=== PATIENT | male | born 1985 | race Caucasian/White ===

== ENCOUNTER 2017-08-11 20:23 | Inpatient (IN) | payer OTHER ==
[~2017-08-11] VITALS: Ht 180.3 cm; Wt 77.1 kg
--- NOTE | 2017-08-11 20:39 | ED GENERAL ADULT ---
See Addendum History of Present Illness General Chief Complaint: ETOH/Drug Related Complaint Stated Complaint: "ALCOHOL WITHDRAWL, DRY HEAVING" DEPRESSED PER PT Source: patient Exam Limitations: no limitations Vital Signs & Intake/Output Vital Signs & Intake/Output Vital Signs Date Time Temp Pulse Resp B/P B/P Pulse O2 O2 Flow FiO2 Mean Ox Delivery Rate 08/12 0039 98.4 88 18 109/66 08/12 0039 98.4 88 18 109/66 99 Room Air 08/12 0011 91 18 94/54 96 Room Air 08/11 2345 98.7 82 18 91/55 08/11 2343 98.7 82 18 91/55 99 Room Air 08/11 2232 98.9 63 20 97/64 08/12 2231 98.6 63 22 97/64 99 Room Air 08/11 205 Room Air 08/11 204 97.5 89 18 126/75 08/11 203 97.5 89 18 126/75 100 Room Air ED Intake and Output 08/12 0000 08/11 1200 Intake Total 1000 Output Total Balance 1000 Intake, IV 1000 Patient 170 lb Weight Weight Reported by Patient Measurement Method Allergies Coded Allergies: No Known Allergies (08/11/17) Reconcile Medications No Known Home Medications Triage Note: PT FROM HOME C/O ETOH DETOX. PT STATES HE IS AN ALCOHOLIC AND WOULD LIKE DETOX. PT WAS SOBER FOR 90 DAYS PRIOR TO 4 MONTHS AGO WHEN PT RELAPSED AND HAS BEEN DRINKING 2 PINTS OF WHISKEY PER DAY FOR THE PAST 4 MONTHS. PT STATES LAST DRINK WAS AT 2300 08/10/17 THROUGHOUT THAT DAY PTS INTAKE WAS 1 PINT OF WHISKEY. PT HAS HAD 1 ALCOHOL SEIZURE WITHDRAWL 1X MONTH AGO. PTS VSS, PT DRY HEAVING IN TRIAGE. PT DENIES -HI BUT STATES "IM DEPRESSED AND HAVE THOUGHT ABOUT HURTING MYSELF BEFORE" PT DENIES PLAN AT THIS TIME. PT UNDERSTAND THE WANDING AND CHANGING PROCEDURE. SECUTIRY CALLED FOR WANDING. Triage Nurses Notes Reviewed? yes Onset: Gradual Duration: worse persistent since (4 months) Timing: recent history Injury Environment: home Severity: moderate Severity Numbers: 8 No Modifying Factors: none HPI: Patient is a 32-year-old male with history of alcohol abuse presenting to the emergency department with chief complaint of wanting alcohol detox. Patient has been drinking about a pain or 2 of whiskey daily for the past 4 months. Unsure withdrawal seizure history but reports that about one month ago he had an episode where he blacked out and people told him he was shaking. Patient reports that when he does not drink he feels anxious and shaky and has nausea and vomiting. Patient denying any abdominal pain. No chest pain or palpitations. Patient has not been able to keep anything down today. Last alcohol was yesterday early evening. Patient also reports that he uses cocaine intermittently. Positive tobacco use daily. (Dea Rocha) Past History Travel History Traveled to [place] past 21 day No Medical History Any Pertinent Medical History? see below for history Neurological: NONE EENT: NONE Cardiovascular: NONE Respiratory: NONE Gastrointestinal: NONE Hepatic: NONE Renal: NONE Musculoskeletal: NONE Psychiatric: NONE Endocrine: NONE Surgical History Surgical History: non-contributory Psychosocial History What is your primary language Ivorian Tobacco Use: Current Daily Use Daily Tobacco Use Amount/Type: => 5 Cigarettes daily ETOH Use: alcoholic Family History Hx Contributory? No (Dea Rocha) Review of Systems Review of Systems Constitutional: Reports: no symptoms. Comments Review of systems: See HPI, All other systems negative. Constitutional, no chills fever or weight loss HEENT: No visual changes no sore throat no congestion Cardiovascular: No chest pain ,palpitation , orthopnea or ankle swelling Skin, no jaundice no rashes Respiratory: No dyspnea cough sputum or hemoptysis GI: Positive nausea and vomiting : No dysuria No hematuria Muscle skeletal: no back pain, no neck pain, Neurologic: No numbness no confusion Psych: Positive stress and anxiety, reports depression Heme/endocrine: No bruising no bleeding no polyuria or polydipsia Immunology: No splenectomy or history of AIDS (Dea Rocha) Physical Exam Physical Exam General Appearance: well developed/nourished, no apparent distress, alert, awake Comments: Well-developed well-nourished person in no acute distress HEENT: Pupils equally round and reactive to light and accommodation. Nose is atraumatic. Neck: Normal inspection Back: Nontender Cardiovascular: Regular rate and rhythms no murmurs rubs or gallops Respiratory: No respiratory distress.breath sounds clear to auscultation bilaterally Abdomen: Soft, nontender nondistended, no appreciable organomegaly. Normal bowel sounds. No ascites, no rebound or guarding. Extremity: No edema Neuro: Alert oriented x3 Skin: No appreciable rash on exposed skin, skin is warm and dry. Psych: APPEARS SLIGHTLY ANXIOUS, memory and judgment is normal. Core Measures ACS in differential dx? No CVA/TIA Diagnosis: No Sepsis Present: No Sepsis Focused Exam Completed? No (Dea Rocha) Progress Differential Diagnoses I considered the following diagnoses in my evaluation of the patient: Alcohol withdrawal, alcohol intoxication, polysubstance abuse, dehydration, electrolyte abnormalities Plan of Care: Orders Procedure Date/time Status Pathway - chart 08/11 2326 Active Continuous Observation Monitor 08/11 2040 Active ED CRISIS PSYCH CONSULT 08/11 2040 Active CIWA 08/11 2037 Active URINE DRUG SCREEN FOR ER ONLY 08/11 2037 Complete MAGNESIUM 08/11 2037 Complete LIPASE 08/11 2037 Complete ETHANOL 08/11 2037 Complete COMPREHENSIVE METABOLIC PANEL 08/11 2037 Complete CBC WITHOUT DIFFERENTIAL 08/11 2037 Complete Current Medications Sig/Yulisa Start time Last Medication Dose Stop Time Status Admin Lorazepam 0.5 MG ONCE 08/16 0000 UNVr (Ativan) 08/16 0001 Lorazepam 0.5 MG Q6 08/15 0600 UNVr (Ativan) 08/16 0000 Lorazepam 0.5 MG ONCE ONE 08/14 1800 UNVr (Ativan) 08/14 1801 Lorazepam 1 MG Q6H 08/14 0000 UNVr (Ativan) 08/14 1201 Lorazepam 1.5 MG Q12H 08/13 0600 UNVr (Ativan) 08/13 1801 Lorazepam 1 MG Q12H 08/13 0000 UNVr (Ativan) 08/13 1201 Lorazepam 2 MG ONCE ONE 08/12 1800 UNVr (Ativan) 08/12 1801 Cyanocobalamin/ 1 BAG DAILY 08/12 1000 CAN Thiamine/Pyridoxine 08/14 1759 (Vitamin in I.V.) Dextrose/Water 1,000 ML (D5W 1000) Cyanocobalamin/ 1 BAG ONCE ONE 08/12 0030 AC Thiamine/Pyridoxine 08/12 0829 (Vitamin in I.V.) Dextrose/Water 1,000 ML (D5W 1000) Lorazepam 1.5 MG Q6H 08/12 0000 UNVr (Ativan) 08/12 1201 Lorazepam 2 MG Q6 08/11 2359 UNVr (Ativan) Laboratory Tests 08/11/17 2300: Urine Opiates Screen > 4000.00 H, Methadone Screen 189, Barbiturate Screen 60, Ur Phencyclidine Scrn < 6.00, Amphetamines Screen 179, U Benzodiazepines Scrn 143, Urine Cocaine Screen > 1000 H, Urine Cannabis Screen 61.10 H 08/11/172052: Anion Gap 9, Estimated GFR > 60, BUN/Creatinine Ratio 21.4, Glucose 101 H, Calcium 9.8, Magnesium 1.6, Total Bilirubin 0.7, AST 23, ALT 23, Alkaline Phosphatase 53, Total Protein 7.3, Albumin 4.2, Globulin 3.1, Albumin/Globulin Ratio 1.4, Lipase 75, CBC w Diff NO MAN DIFF REQ, RBC 4.62 L, MCV 87.2, MCH 29.9, MCHC 34.3, RDW 13.3, MPV 7.9, Gran % 57.6, Lymphocytes % 32.8, Monocytes % 6.3, Eosinophils % 3.0, Basophils % 0.3, Absolute Granulocytes 3.8, Absolute Lymphocytes 2.2, Absolute Monocytes 0.4, Absolute Eosinophils 0.2, Absolute Basophils 0, Serum Alcohol < 10.0 Initial ED EKG: none Hand-Off Endorsed To: Howard Winn DO Endorsed Time: 0100 Pending: consult, other (Dea Rocha) Departure Departure Disposition: STILL A PATIENT Condition: Stable Clinical Impression Primary Impression: Alcohol withdrawal Qualifiers: Complication of substance-induced condition: uncomplicated Qualified Code: F10.230 - Alcohol dependence with withdrawal, uncomplicated Referrals: Patient Has No Primary Care Dr (PCP/Family) Departure Forms: Customer Survey General Discharge Information Prescriptions: Current Visit Scripts No Known Home Medications (Dea Rocha) Departure Comments 08/12/17 12:46 AM Patient was signed out to me by Dea Carolina. He is pending case management approval for alcohol detox. He has his CIWA score of 17 and a history of alcohol withdrawal seizures. The patient will be signed out to Dr. Frank at 7 AM. (Howard Winn DO) Critical Care Note Critical Care Note Critical Care Time: non-applicable (Dea Rocha)
[2017-08-11 20:42] VITALS: BP 126/75
[2017-08-11 21:03] LABS: ABSOLUTE BASOPHIL COUNT 0 /CUMM (0.0-0.2); ABSOLUTE EOSINOPHIL COUNT 0.2 /CUMM (0.0-0.7); ABSOLUTE GRANULOCYTE CT 3.8 /CUMM (1.4-6.5); ABSOLUTE LYMPH COUNT 2.2 /CUMM (1.2-3.4); ABSOLUTE MONOCYTE COUNT 0.4 /CUMM (0.10-0.60); BASOPHIL % 0.3 % (0.0-2.0); GRANULOCYTE % 57.6 % (42.2-75.2); HEMATOCRIT 40.3 % (42-52); MEAN CORPUSCULAR HGB 29.9 PG (27.0-31.0); MEAN CORPUSCULAR HGB CONC 34.3 G/DL (33.0-37.0); MEAN CORPUSCULAR VOLUME 87.2 FL (80.0-94.0); MEAN PLATELET VOLUME 7.9 FL (7.4-10.4); PLATELET COUNT 267 /CUMM (130-400); RBC DISTRIBUTION WIDTH 13.3 % (11.5-14.5); RED BLOOD CELL CT 4.62 /CUMM (4.70-6.10); WHITE BLOOD CELL COUNT 6.7 /CUMM (4.8-10.8)
[2017-08-11 22:32] VITALS: BP 97/64
[2017-08-11 23:45] VITALS: BP 91/55
[2017-08-12] VITALS (9 sets, daily range): BP systolic 105–130; BP diastolic 58–74
--- NOTE | 2017-08-12 03:46 | History & Physical ---
MatthewMaldonado 08/12/17 0341: General Information and HPI MD Statement: I have seen and personally examined FRANCISCA LIU and documented this H&P. The patient is a 32 year old M who presented with a patient stated chief complaint of dry heaves and vomiting with headache due to alcohol withdrawal came for alcohol detox.[]. 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 Patient reported that he has been drinking alcohol 1-2 pints every day for last 4 months. Patient's last drink was yesterday after that he decided to quit alcohol and came to ED with alcohol withdrawal symptoms. Patient also reported that last time he got alcohol detox treatment at [facility] and he remained sober for 4 weeks. After the patient again started to drink alcohol. Patient reported that he vomited once but he didn't tell me if he noticed any blood in it. During the interview patient became agitated as he was thinking that we were disturbing his sleep and he had to answer the questions again and again. We explained him that we are going to admit him that we have to interview him again. Patient also reported the use of iv cocaine and heroine every day and last time he used yesterday. Patient also reported that he is positive for hep C with negative viral load in 2002 and never got the treatment. He also reported having seizures due to alcohol withdrawal but never been admitted to the hospital. Patient also reported having history of cocaine- induced arrhythmia in 2011. Patient denied any chest pain, short of breath, chills, fever, lumps or bumps in the neck, abdominal pain, diarrhea, depression, loss of appetite, loss of consciousness, palpitation and dysuria. ED course: Vitals:Temp 97.5, pulse 89, respiratory rate 18, blood pressure 126/75, oxygen saturation 99% on room air Labs: WBC count 6.7, hemoglobin 13.8, hematocrit 40.3, platelet count 267, sodium 135, potassium 3.9, BUN 15, creatinine 0.7, anion gap 9, BUN/creatinine ratio 21.4, glucose 101, calcium 9.8, magnesium 1.6, AST 23, ALT 23, alkaline phosphatase 53, total protein 7.3, albumin 4.2, globulin 3.1, albumin/globulin ratio 1.4, lipase 75 His CIWA score in ED was 17 and he got multiple doses of lorazepam. Patient also received thiamine, vitamin B12 and folic acid. His U tox was positive for cocaine, marijuana, and methadone in ED. Allergies/Medications Allergies: Coded Allergies: No Known Allergies (08/11/17) Home Med list No Known Home Medications Past History Travel History Traveled to [place] past 21 day No Medical History Neurological: NONE EENT: NONE Cardiovascular: NONE Respiratory: NONE Gastrointestinal: NONE Hepatic: NONE Renal: NONE Musculoskeletal: NONE Psychiatric: NONE Endocrine: NONE Isolation History: Standard Surgical History Surgical History: non-contributory Past Family/Social History Psychosocial History ETOH Use: alcoholic Review of Systems Review of Systems Constitutional: Reports: see HPI. EENTM: Reports: no symptoms. Cardiovascular: Reports: no symptoms. Respiratory: Reports: no symptoms. GI: Reports: nausea, vomiting. Genitourinary: Reports: no symptoms. Musculoskeletal: Reports: no symptoms. Skin: Reports: no symptoms. Neurological/Psychological: Reports: anxiety, headache. Hematologic/Endocrine: Reports: no symptoms. Exam & Diagnostic Data Last 24 Hrs of Vital Signs/I&O Vital Signs Date Time Temp Pulse Resp B/P B/P Pulse O2 O2 Flow FiO2 Mean Ox Delivery Rate 08/127 98.6 86 18 111/62 08/12 0225 98.6 86 18 111/62 99 Room Air 08/12 0110 98.6 86 18 105/58 08/12 0108 98.6 86 18 105/58 100 Room Air 08/12 0039 98.4 88 18 109/66 08/12 0039 98.4 88 18 109/66 99 Room Air 08/12 0011 91 18 94/54 96 Room Air 08/11 2344 98.7 82 18 91/55 08/11 2342 98.7 82 18 91/55 99 Room Air 08/12 2231 98.9 63 20 97/64 08/12 2231 98.6 63 22 97/64 99 Room Air 08/11 2054 Room Air 08/11 2041 97.5 89 18 126/75 08/12 2031 97.5 89 18 126/75 100 Room Air Intake & Output 08/12 0800 08/12 0000 08/11 1600 Intake Total 1000 Output Total Balance 1000 Intake, IV 1000 Patient 170 lb Weight Weight Reported by Patient Measurement Method Physical Exam General Appearance Oriented X3, Cooperative, No Acute Distress Skin No Rashes Skin Temp/Moisture Exam: Warm/Dry Sepsis Skin Exam (color): Normal for Ethnicity HEENT Atraumatic Neck Supple Cardiovascular Normal S1, Normal S2 Lungs Clear to Auscultation, Normal Air Movement Abdomen Normal Bowel Sounds, Soft Neurological Normal Speech, Strength at 5/5 X4 Ext, Normal Tone, Sensation Intact Extremities No Edema, Right hand mild swelling and redness Assessment/Plan Assessment: 32 YO M smoker (1 pack/d) with significant PMH of alcohol abuse, hepatitis c with negative viral load, 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 We will admit the patient on general medicine floor for alcohol detox. Alcohol detox: -We will follow the CIWA protocal and will give him IV lorazepam according to CIWA score. -By mouth lorazepam 2 mg every 8 hourly. -High dose IV thiamine with vitamin B12 and folic acid. -IV Protonix. -IV antiemetics when necessary. -IV hydration as needed -Seizure precautions -Aspiration precautions -Nothing by mouth for now. -We will check his magnesium and phosphorus level. History of cocaine and heroine use: -Patient has history of IV cocaine and he will use and also reported having cocaine-induced arrhythmias. -We will check troponin and EKG 2 more times. -We will monitor his vitals. -Right hand swelling and mild redness. We will follow clinically. DVT prophylaxis: Mechanical and Lovenox subcutaneous. CODE STATUS: Full code As Ranked By This Provider Problem List: 1. Alcohol withdrawal Qualifiers Complication of substance-induced condition: uncomplicated Qualified Code: F10.230 - Alcohol dependence with withdrawal, uncomplicated Core Measures/Misc (02/15) Acute Coronary Syndrome ACS Diagnosis: No Congestive Heart Failure Congestive Heart Failure Diagnosis No Cerebrovascular Accident CVA/TIA Diagnosis: No VTE (View Protocol) VTE Risk Factors Smoker No Mechanical VTE Prophylaxis d/t N/A MechProphylax Ordered No VTE Pharm Prophylaxis d/t NA PharmProphylax ordered Sepsis (View protocol) Sepsis Present: No Albalwai,Afaf 08/12/17 0408: Resident Review Statement Resident Statement: examined this patient, discussed with multicultural internship, agreed with multicultural internship, discussed with family, reviewed EMR data (avail), discussed with nursing , reviewed images Other Findings: is a 32 yo man with PMHx. of alcohol dependence, HC, and multiple admission for alcohol withdrawal at [facility] with withdrawal seizure presented to ED requesting detox. Admission to general medicine floor, [facility] protocol, ativan per [facility], scheduled ativan, banana bag followed by oral thiamine, multivitamin, oral folic acid, EKG , trops, will repeat CBC, BEP, Mg, Po4, LFT, social consult, psych consult. DVTppx: SC Lovenox Ursula Roth 08/12/17 0436: Attending MD Review Statement Attending Statement Attending MD Statement: examined this patient, discuss w/resident/PA/FOREST SCIENTIST, agreed w/resident/PA/FOREST SCIENTIST, reviewed EMR data (avail), reviewed images, amended to note Attending Assessment/Plan: CC: Requesting alcohol detox PMH: Alcoholism, hep C not treated: viral load negative, cocaine related arrhythmia Patient came to ER requesting alcohol detox. Patient had been sober in the past for 4 weeks, relapsed again 4 months ago, drinks 2 pints of whiskey every day. Patient had undergone several detox in [facility] and [facility], never hospitalized in ICU, did not have seizures in hospital. Approximately 5 months back bystander noticed him having loss of consciousness and shaking but he never was investigated for that episode. Patient admits depression, suicidal ideation But no plan. Last alcohol use yesterday evening. Patient uses IV cocaine and heroine use intermittently, last use yesterday. He complains of nausea, dry heaving and 1 episode of vomiting and feeling anxious. He denies any chest pain, palpitations, heartburn, abdominal pain, blood in vomitus, black colored stool, recent seizure-like episode or passing out. Vitals: Afebrile, pulse 89, RR 18, blood pressure 126/75 on arrival, saturating well on room air. On exam: A O 3, cooperative, no acute distress, neck supple, JVD normal, no lymphadenopathy, mucosa moist, no focal neurological deficit, no dependent edema , no obvious skin rashes or inflammation CVS: S1-S2, RRR. RS: Clear to auscultate bilaterally. Abdomen: Soft, NT, ND, bowel sounds present. Right forearm mildly swollen, red but nontender and not increased temperature Assessment and plan 32-year-old male with past medical history significant for alcoholism presented in ER requesting detox. He feels anxious, has nausea, dry heaving and one episode vomiting , nonbloody. CIWA scores ranging from 6-17. Exam unremarkable, labs show mild volume contraction with alkalosis. U tox positive for marijuana, cocaine, opiates, methadone. Patient endorses IV use of heroine and cocaine, last use yesterday. He had history of cocaine-induced arrhythmia in 2011, currently not on any medication for the same. ECG and telemetry monitoring in ER is normal. Currently patient denies any chest pain, palpitations. Right upper extremity mildly swollen and red needs to be followed up clinically. Patient had seizure-like activity 5 months back, observe by a bystander, currently not on any medication + Alcohol withdrawal + Polysubstance abuse (IVDU) + Hx Hep c, negative viral load without treatment diagnosed 2002. - Admit to general medicine - Continue scheduled Ativan PO 2 mg milligram every 6 hour - Continue when necessary Ativan according to CIWA protocol - High-dose thiamine - Continue gentle hydration - PO folic acid - Check magnesium and phosphorus, today and tomorrow, replace if low - Seizure precaution - Protonix 40 mg by mouth daily - When necessary Zofran - 2 more sets of troponin and ECG - DVT prophylaxis - Adequate pain control
--- NOTE | 2017-08-12 04:37 | Admission Certification ---
Admission Certification Certification Statement - As attending physician, I certify that at the time of - admission, based on clinical presentation, severity of - symptoms, need for further diagnostic testing and - therapeutic interventions, and risk of adverse outcomes - without in-hospital treatment, in my clinical assessment, - this patient requires an acute hospital stay for a minimum - of two nights or longer. I have also considered psychsocial - factors such as support system, advanced age, financial - issues, cognitive issues, and failed out-patient treatments, - past re-admission history, safety of patient, and lack of - compliance as applicable. Specific rationale supporting this admission is: Alcohol withdrawal
--- NOTE | 2017-08-12 12:25 | PN- Att Addend ---
Attending Addendum Attending Brief Note Assessment and plan 32-year-old male with past medical history significant for alcoholism presented in ER requesting detox. No new complaints. 1 Alcohol withdrawal 2 Polysubstance abuse (IVDU) 3 Hx Hep c, Negative viral load without treatment diagnosed 2002. - Admit to general medicine - Continue scheduled Ativan - Continue when necessary Ativan according to CIWA protocol - High-dose thiamine - PO folic acid - Check magnesium and phosphorus, today and tomorrow, replace if low - Seizure precaution - Protonix 40 mg by mouth daily - When necessary Zofran - DVT prophylaxis - Adequate pain control. Admission Lab Results I reviewed the following labs: Laboratory Tests 08/12 08/12 08/12 08/12 1204 1000 0800 0600 Chemistry Sodium (137 - 145 mmol/L) 137 Potassium (3.5 - 5.1 mmol/L) 4.6 Chloride (98 - 107 mmol/L) 103 Carbon Dioxide (22 - 30 mmol/L) 28 Anion Gap (5 - 16) 7 BUN (9 - 20 mg/dL) 14 Creatinine (0.7 - 1.2 mg/dL) 0.7 Estimated GFR (>60 ml/min) > 60 BUN/Creatinine Ratio (7 - 25 %) 20.0 Phosphorus (2.5 - 4.5 mg/dL) 3.7 Magnesium (1.6 - 2.3 mg/dL) 1.6 Total Bilirubin (0.2 - 1.3 mg/dL) 0.8 Direct Bilirubin (< 0.4 mg/dL) 0.6 H AST (17 - 59 U/L) 28 ALT (21 - 72 U/L) 23 Alkaline Phosphatase (< 127 U/L) 48 Troponin I (<0.11 ng/ml) Pending Cancelled Cancelled < 0.01 Total Protein (6.3 - 8.2 g/dL) 5.9 L Albumin (3.5 - 5.0 g/dL) 3.2 L 08/12 08/11 0441 2300 Chemistry Troponin I Cancelled Toxicology Urine Opiates Screen (>2000 NG/ML) > 4000.00 H Methadone Screen (>300 NG/ML) 189 Barbiturate Screen (>200 NG/ML) 60 Ur Phencyclidine Scrn (>25 NG/ML) < 6.00 Amphetamines Screen (>1000 NG/ML) 179 U Benzodiazepines Scrn (>200 NG/ML) 143 Urine Cocaine Screen (>300 NG/ML) > 1000 H Urine Cannabis Screen (>50 NG/ML) 61.10 H 08/11 2052 Chemistry Sodium (137 - 145 mmol/L) 135 L Potassium (3.5 - 5.1 mmol/L) 3.9 Chloride (98 - 107 mmol/L) 96 L Carbon Dioxide (22 - 30 mmol/L) 30 Anion Gap (5 - 16) 9 BUN (9 - 20 mg/dL) 15 Creatinine (0.7 - 1.2 mg/dL) 0.7 Estimated GFR (>60 ml/min) > 60 BUN/Creatinine Ratio (7 - 25 %) 21.4 Glucose (65 - 99 mg/dL) 101 H Calcium (8.4 - 10.2 mg/dL) 9.8 Phosphorus (2.5 - 4.5 mg/dL) 4.7 H Magnesium (1.6 - 2.3 mg/dL) 1.6 Total Bilirubin (0.2 - 1.3 mg/dL) 0.7 AST (17 - 59 U/L) 23 ALT (21 - 72 U/L) 23 Alkaline Phosphatase (< 127 U/L) 53 Troponin I (<0.11 ng/ml) < 0.01 Total Protein (6.3 - 8.2 g/dL) 7.3 Albumin (3.5 - 5.0 g/dL) 4.2 Globulin (1.9 - 4.2 gm/dL) 3.1 Albumin/Globulin Ratio (1.1 - 2.2 %) 1.4 Lipase (23 - 300 U/L) 75 Hematology CBC w Diff NO MAN DIFF REQ WBC (4.8 - 10.8 /CUMM) 6.7 RBC (4.70 - 6.10 /CUMM) 4.62 L Hgb (14.0 - 18.0 G/DL) 13.8 L Hct (42 - 52 %) 40.3 L MCV (80.0 - 94.0 FL) 87.2 MCH (27.0 - 31.0 PG) 29.9 MCHC (33.0 - 37.0 G/DL) 34.3 RDW (11.5 - 14.5 %) 13.3 Plt Count (130 - 400 /CUMM) 267 MPV (7.4 - 10.4 FL) 7.9 Gran % (42.2 - 75.2 %) 57.6 Lymphocytes % (20.5 - 51.1 %) 32.8 Monocytes % (1.7 - 9.3 %) 6.3 Eosinophils % (0 - 5 %) 3.0 Basophils % (0.0 - 2.0 %) 0.3 Absolute Granulocytes (1.4 - 6.5 /CUMM) 3.8 Absolute Lymphocytes (1.2 - 3.4 /CUMM) 2.2 Absolute Monocytes (0.10 - 0.60 /CUMM) 0.4 Absolute Eosinophils (0.0 - 0.7 /CUMM) 0.2 Absolute Basophils (0.0 - 0.2 /CUMM) 0 Toxicology Serum Alcohol (<10 MG/DL) < 10.0 Admission Meds I reviewed the following Meds: Current Medications Sig/Yulisa Start time Last Medication Dose Stop Time Status Admin Acetaminophen 650 MG Q6P PRN 08/12 0415 AC (Tylenol) Cyanocobalamin/ 1 BAG DAILY 08/12 1000 CAN Thiamine/Pyridoxine 08/14 1759 (Vitamin in I.V.) Dextrose/Water 1,000 ML (D5W 1000) Enoxaparin Sodium 40 MG DAILY 08/12 1000 AC 08/12 (Lovenox) 0917 Folic Acid 1 MG DAILY 08/12 1000 AC 08/12 (Folic Acid) 0917 Lorazepam 0.5 MG ONCE ONE 08/14 1800 CAN (Ativan) 08/14 1801 Lorazepam 1 MG Q6H 08/14 0000 CAN (Ativan) 08/14 1201 Lorazepam 1 MG Q12H 08/13 0000 CAN (Ativan) 08/13 1201 Lorazepam 2 MG Q6H 08/12 0400 AC 08/12 (Ativan) 0917 Lorazepam See Dose Q1P PRN 08/12 0400 AC (Ativan) Insts (1) Multivitamins 1 TAB DAILY 08/12 1000 AC 08/12 (Theragran Vitamins) 0917 Omeprazole 40 MG DAILY AC 08/12 0700 AC 08/12 (Prilosec) 0632 Thiamine HCl 100 MG DAILY 08/12 1000 AC 08/12 (Vitamin B1) 0917 Dose Instructions: (1)Lorazepam (Ativan): See Admin Criteria
[2017-08-13] VITALS: BP 119/62
[2017-08-13 01:32] VITALS: BP 124/62
[2017-08-13 06:28] VITALS: BP 106/59
--- NOTE | 2017-08-13 07:52 | PN- Housestaff ---
Em Bryan MD 08/13/17 0752: Subjective Follow-up For: ALCOHOL DETOX Complaints: MYALGIA Review of Systems Constitutional: Reports: weakness. Cardiovascular: Reports: no symptoms. Respiratory: Reports: no symptoms. Gastrointestinal: Reports: no symptoms. Genitourinary: Reports: no symptoms. Musculoskeletal: Reports: muscle pain. Objective Last 24 Hrs of Vital Signs/I&O Vital Signs Date Time Temp Pulse Resp B/P B/P Pulse O2 O2 Flow FiO2 Mean Ox Delivery Rate 08/13 1356 97.7 82 20 110/70 98 Room Air 08/13 1052 70 106/59 08/13 0628 98.3 70 18 106/59 97 08/13 0132 97.8 80 20 124/62 08/13 0000 97.7 62 20 119/62 08/12 2249 97.7 62 20 119/62 98 Room Air 08/12 1728 74 20 08/12 1717 98.7 74 18 116/72 99 Room Air 08/12 1619 97.7 82 18 114/60 97 Room Air 08/12 1417 97.9 76 19 119/55 97 Intake & Output 08/13 1600 08/13 0800 08/13 0000 Intake Total 612 993 3546 Output Total Balance 080 665 7932 Intake, IV 0 10 450 Intake, Oral 500 400 600 Number 1 Bowel Movements Patient 170 lb Weight Weight Reported by Patient Measurement Method Physical Exam General Appearance: Alert, Oriented X3, Cooperative, Mild Distress Skin: No Rashes, No Breakdown Cardiovascular: Regular Rate, Normal S1, Normal S2 Lungs: Clear to Auscultation Abdomen: Soft, No Tenderness, No Hepatospenomegaly Neurological: Strength at 5/5 X4 Ext, Normal Tone, Sensation Intact Extremities: No Edema Assessment/Plan Assessment: 32 YO M smoker (1 pack/d) with significant PMH of alcohol abuse, hepatitis c with negative viral load, 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 We will admit the patient on general medicine floor for alcohol detox. Alcohol detox/opioid withdrawal: -Patient is on IV lorazepam when necessary and by mouth lorazepam 2 mg every 6. His ciwa score is 16-14. We will follow the CIWA protocal and will give him IV lorazepam according to CIWA score. -Patient was seen by psychiatry who suggested to add Bentyl, Atarax for anxiety, baclofen, clonidine, ibuprofen to help with this opioid withdrawal. -High dose IV thiamine with vitamin B12 and folic acid. -Omeprazole 40 mg daily. Zofran IV as needed. -Seizure precautions -Aspiration precautions -Regular diet. -Replace electrolytes as needed. -Patient is homeless and we will involve social service agency director to help with this placement. DVT prophylaxis: Mechanical and Lovenox subcutaneous. CODE STATUS: Full code Problem List: 1. Alcohol withdrawal 2. Acute opioid withdrawal Pain Ratin Pain Location: none Pain Goal: Remain pain free Pain Plan: tylenol,ativan, motrin Tomorrow's Labs & Rationales: Mauro Shaffer MD 08/13/172057: Attending MD Review Statement Attending Statement Attending MD Statement: examined this patient, discuss w/resident/PA/RESTAURANT MANAGING PARTNER, agreed w/resident/PA/RESTAURANT MANAGING PARTNER, reviewed EMR data (avail), discussed with nursing, discussed with case mgmt, amended to note Attending Assessment/Plan: The patient was seen and discussed with house staff, nursing, and case management. Appreciate psychiatry input. The patient presents with EtOH and polysubstance abuse, including opioids and cocaine. Agree with addition of opioid withdrawal regimen (clonidine, bentyl, ibuprofen, etc.). Continue Ativan alcohol detox regimen.
--- NOTE | 2017-08-13 09:16 | Cons- Psychiatry ---
Psychiatric Consult Date of Consult: 08/13/17 Reason for Consult: etoh/depression Allergies: Coded Allergies: No Known Allergies (08/11/17) Past History Past Medical History Neurological: SEIZURE WITHDRAWL DUE TO ALCOHOL EENT: NONE Cardiovascular: NONE Respiratory: NONE Gastrointestinal: NONE Hepatic: NONE Renal: NONE Musculoskeletal: NONE Psychiatric: NONE Endocrine: NONE Blood Disorders: HEP C Past Surgical History Surgical History: non-contributory Assessment/Plan Impression: Pt seen and examined bedside, chart and labs reviewed. 32 y/o M PMH etoh use d/o opiate use disorder Hep C untreated self presents for etoh detox. Relapsed 4 months ago after 3 months sober. 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 Hx WD seizure 1 month ago. Also reported depressive sx while in ED, no plan. Recent detox at [facility]. Cocaine induced arrthymia in 2011. Refuses exam but reports doing 20 bags of heroin daily and "crawling out of my skin." Amenable to interview after sx resolve. Requesting ativan. Ed Course Vitals:Temp 97.5, pulse 89, respiratory rate 18, blood pressure 126/75, oxygen saturation 99% on room air His U tox was positive for cocaine, marijuana, and opiates in ED. Vital Signs Date Time Temp Pulse Resp B/P B/P Pulse O2 O2 Flow FiO2 Mean Ox Delivery Rate 08/13 0628 98.3 70 18 106/59 97 08/13 0132 97.8 80 20 124/62 Laboratory Tests 08/13 08/12 08/12 08/12 08/12 0715 1204 1000 0800 0600 Chemistry Sodium (137 - 145 mmol/L) 139 137 Potassium (3.5 - 5.1 mmol/L) 4.2 4.6 Chloride (98 - 107 mmol/L) 103 103 Carbon Dioxide (22 - 30 mmol/L) 25 28 Anion Gap (5 - 16) 11 7 BUN (9 - 20 mg/dL) 10 14 Creatinine (0.7 - 1.2 mg/dL) 0.7 0.7 Estimated GFR (>60 ml/min) > 60 > 60 BUN/Creatinine Ratio (7 - 25 %) 14.3 20.0 Phosphorus (2.5 - 4.5 mg/dL) 2.8 3.7 Magnesium (1.6 - 2.3 mg/dL) 1.6 1.6 Total Bilirubin (0.2 - 1.3 mg/dL) 0.8 Direct Bilirubin (< 0.4 mg/dL) 0.6 H AST (17 - 59 U/L) 28 ALT (21 - 72 U/L) 23 Alkaline Phosphatase (< 127 U/L) 48 Troponin I (<0.11 ng/ml) < 0.01 Cancelled Cancelled < 0.01 Total Protein (6.3 - 8.2 g/dL) 5.9 L Albumin (3.5 - 5.0 g/dL) 3.2 L 08/12 08/11 0441 2300 Chemistry Troponin I Cancelled Toxicology Urine Opiates Screen (>2000 NG/ML) > 4000.00 H Methadone Screen (>300 NG/ML) 189 Barbiturate Screen (>200 NG/ML) 60 Ur Phencyclidine Scrn (>25 NG/ML) < 6.00 Amphetamines Screen (>1000 NG/ML) 179 U Benzodiazepines Scrn (>200 NG/ML) 143 Urine Cocaine Screen (>300 NG/ML) > 1000 H Urine Cannabis Screen (>50 NG/ML) 61.10 H 08/113 Chemistry Sodium (137 - 145 mmol/L) 135 L Potassium (3.5 - 5.1 mmol/L) 3.9 Chloride (98 - 107 mmol/L) 96 L Carbon Dioxide (22 - 30 mmol/L) 30 Anion Gap (5 - 16) 9 BUN (9 - 20 mg/dL) 15 Creatinine (0.7 - 1.2 mg/dL) 0.7 Estimated GFR (>60 ml/min) > 60 BUN/Creatinine Ratio (7 - 25 %) 21.4 Glucose (65 - 99 mg/dL) 101 H Calcium (8.4 - 10.2 mg/dL) 9.8 Phosphorus (2.5 - 4.5 mg/dL) 4.7 H Magnesium (1.6 - 2.3 mg/dL) 1.6 Total Bilirubin (0.2 - 1.3 mg/dL) 0.7 AST (17 - 59 U/L) 23 ALT (21 - 72 U/L) 23 Alkaline Phosphatase (< 127 U/L) 53 Troponin I (<0.11 ng/ml) < 0.01 Total Protein (6.3 - 8.2 g/dL) 7.3 Albumin (3.5 - 5.0 g/dL) 4.2 Globulin (1.9 - 4.2 gm/dL) 3.1 Albumin/Globulin Ratio (1.1 - 2.2 %) 1.4 Lipase (23 - 300 U/L) 75 Hematology CBC w Diff NO MAN DIFF REQ WBC (4.8 - 10.8 /CUMM) 6.7 RBC (4.70 - 6.10 /CUMM) 4.62 L Hgb (14.0 - 18.0 G/DL) 13.8 L Hct (42 - 52 %) 40.3 L MCV (80.0 - 94.0 FL) 87.2 MCH (27.0 - 31.0 PG) 29.9 MCHC (33.0 - 37.0 G/DL) 34.3 RDW (11.5 - 14.5 %) 13.3 Plt Count (130 - 400 /CUMM) 267 MPV (7.4 - 10.4 FL) 7.9 Gran % (42.2 - 75.2 %) 57.6 Lymphocytes % (20.5 - 51.1 %) 32.8 Monocytes % (1.7 - 9.3 %) 6.3 Eosinophils % (0 - 5 %) 3.0 Basophils % (0.0 - 2.0 %) 0.3 Absolute Granulocytes (1.4 - 6.5 /CUMM) 3.8 Absolute Lymphocytes (1.2 - 3.4 /CUMM) 2.2 Absolute Monocytes (0.10 - 0.60 /CUMM) 0.4 Absolute Eosinophils (0.0 - 0.7 /CUMM) 0.2 Absolute Basophils (0.0 - 0.2 /CUMM) 0 Toxicology Serum Alcohol (<10 MG/DL) < 10.0 Current Medications Sig/Yulisa Start time Last Medication Dose Route Stop Time Status Admin Acetaminophen 0 .STK-MED ONE 08/12 1605 DC PO Acetaminophen 650 MG Q6P PRN 08/12 0415 AC 08/12 PO 1623 Enoxaparin Sodium 40 MG DAILY 08/12 1000 AC 08/13 SC 0934 Folic Acid 1 MG DAILY 08/12 1000 AC 08/13 PO 0935 Influenza Virus 0.5 ML ONCE ONE 08/12 1914 DC 08/12 Vaccine IM 08/12 Lorazepam 0.5 MG ONCE 08/16 0000 DC IV 08/16 0001 Lorazepam 0.5 MG Q6 08/15 0600 DC IV 08/16 0000 Lorazepam 1.5 MG Q12H 08/13 0600 DC IV 08/13 1801 Lorazepam 1.5 MG ONCE ONE 08/12 1915 DC 08/12 IV 08/12 191 1905 Lorazepam 2 MG ONCE ONE 08/12 1800 DC IV 08/12 1801 Lorazepam 0 .STK-MED ONE 08/12 1614 DC .ROUTE Lorazepam 0 .STK-MED ONE 08/12 1500 DC PO Lorazepam 2 MG Q6H 08/12 0400 AC 08/13 PO 0934 Lorazepam See Dose Q1P PRN 08/12 0400 AC 08/13 Insts (1) IV 0721 Magnesium Oxide 400 MG DAILY 08/12 1345 AC 08/13 PO 0934 Multivitamins 1 TAB DAILY 08/12 1000 AC 08/13 PO 0935 Nicotine 14 MG DAILY 08/12 1315 AC 08/13 TOP 0934 Nicotine 0 .STK-MED ONE 08/12 1312 DC TOP Omeprazole 40 MG DAILY AC 08/12 0700 AC 08/13 PO 0614 Ondansetron HCl 4 MG Q6P PRN 08/13 0915 AC 08/13 IV 0941 Thiamine HCl 100 MG DAILY 08/12 1000 AC 08/13 PO 0934 MSE: Young Male sitting up in bed fidgeting edgy irritable, requests valium and more ativan. States he is uncomfortable. Looks uncomfortable, ornery irritable. TP Linear TC more meds, discomfort Refuses rest of exam. A/ 32 to M etoh use d/o, opiate use d/o, sedative use d/o, cocaine use d/o presents asking for etoh detox then states he is using heroin and street benzos. Currently in opiate withdrawal. Suggest -EKG ?QTc -Clonidine 0.1 mg q4h prn. Hold for BP less than 90 systolic or 60 diastolic or paul to 55 -baclofen 10 mg po q6h prn muscle spasm -bentyl 20 mg q6h prn stomach cramps -atarax 50 mg po q6h prn anxiety -ibuprofen 600 mg po q6h prn muscle pain, HERNANDEZ (with a NTE) -MVI qdaily -would follow vitals closely as he has been abusing street benzos; would not raise his ativan per his request; he will not get replacement therapy here and his opiate WD will necessarily be somewhat uncomfortable. -po ativan will last longer Call with any questions. I will f/u with him when he is amenable to interview. Colette Yan MD #[id number]
[2017-08-13 13:56] VITALS: BP 110/70
[2017-08-13 21:44] VITALS: BP 121/71
[2017-08-14 07:01] VITALS: BP 128/76
--- NOTE | 2017-08-14 07:26 | PN- Housestaff ---
Irvin MOSELEY,Em 08/14/17 0726: Subjective Follow-up For: Opioid and alcohol withdrawal Complaints: patient says he feels unwell, tremors in his hand, myalgia. Subjective: Patient was seen and examined at bedside. He was sitting in his bed in no acute distress. He said he didn't sleep well overnight to cause of feeling unwell due to withdrawal. He said he has more of opiate to trauma rather than alcohol. He was requesting Ativan 2 mg IV. He appears alert, oriented 3 and has a insight of his condition. He denies chest pain, chest pressure, nausea, vomiting, abdominal pain. Review of Systems Constitutional: Reports: weakness. Cardiovascular: Reports: no symptoms. Respiratory: Reports: no symptoms. Gastrointestinal: Reports: no symptoms. Genitourinary: Reports: no symptoms. Musculoskeletal: Reports: no symptoms. Objective Last 24 Hrs of Vital Signs/I&O Vital Signs Date Time Temp Pulse Resp B/P B/P Pulse O2 O2 Flow FiO2 Mean Ox Delivery Rate 08/14 0737 68 110/78 08/14 0701 98.4 81 18 128/76 98 Room Air 08/13 2252 85 121/71 08/13 2144 98.2 85 18 121/71 99 Room Air 08/13 1356 97.7 82 20 110/70 98 Room Air 08/13 1052 70 106/59 Intake & Output 08/14 1600 08/14 0800 08/14 0000 Intake Total 480 Output Total Balance 480 Intake, Oral 480 Number 0 Bowel Movements Physical Exam General Appearance: Alert, Oriented X3, Cooperative, No Acute Distress Cardiovascular: Regular Rate, Normal S1, Normal S2, No Murmurs Lungs: Clear to Auscultation Abdomen: Normal Bowel Sounds, Soft, No Tenderness Neurological: Strength at 5/5 X4 Ext, Normal Tone, Sensation Intact Extremities: No Edema Current Medications: Current Medications Sig/Yulisa Start time Last Medication Dose Route Stop Time Status Admin Acetaminophen 650 MG Q6P PRN 08/12 0415 AC 08/12 PO 1623 Baclofen 10 MG Q6-PRN PRN 08/13 1415 AC 08/14 PO 0733 Clonidine 0.1 MG Q4P PRN 08/13 1413 AC 08/14 PO 0737 Clonidine 0.1 MG Q8 08/13 1030 DC 08/13 PO 1052 Diazepam 10 MG ONCE ONE 08/13 2230 CAN PO 08/13 2231 Diazepam 10 MG ONCE ONE 08/13 2215 CAN PO 08/13 2216 Diazepam 5 MG ONCE ONE 08/13 2215 DC IV 08/13 2216 Dicyclomine HCl 20 MG Q6P PRN 08/13 1415 AC 08/14 PO 0733 Enoxaparin Sodium 40 MG DAILY 08/12 1000 AC 08/13 SC 0934 Folic Acid 1 MG DAILY 08/12 1000 AC 08/13 PO 0935 Hydroxyzine HCl 10 MG Q6P PRN 08/13 1415 AC PO Ibuprofen 600 MG Q6P PRN 08/13 1415 AC PO Lorazepam 0.5 MG ONCE 08/16 0000 DC IV 08/16 0001 Lorazepam 0.5 MG Q6 08/15 0600 DC IV 08/16 0000 Lorazepam 2 MG ONE ONE 08/13 2245 DC 08/13 IV 08/13 2246 2253 Lorazepam 2 MG ONE ONE 08/13 2030 DC 08/13 IV 08/13 2031 2037 Lorazepam 2 MG Q6H 08/12 0400 AC 08/14 PO 0401 Lorazepam See Dose Q1P PRN 08/12 0400 AC 08/14 Insts (1) IV 0733 Magnesium Oxide 400 MG DAILY 08/12 1345 AC 08/13 PO 0934 Metoclopramide HCl 10 MG ONCE ONE 08/13 1630 DC IV 08/13 1631 Multivitamins 1 TAB DAILY 08/12 1000 AC 08/13 PO 0935 Nicotine 14 MG DAILY 08/12 1315 AC 08/13 TOP 0934 Omeprazole 40 MG DAILY AC 08/14 0700 CAN PO Omeprazole 40 MG DAILY AC 08/12 0700 AC 08/14 PO 0605 Ondansetron HCl 4 MG Q6P PRN 08/13 0915 AC 08/13 IV 1534 Thiamine HCl 100 MG DAILY 08/12 1000 AC 08/13 PO 0934 Dose Instructions: (1)Lorazepam: See Admin Criteria Last 24 Hrs of Lab/Jaguar Results Last 24 Hrs of Labs/Mics: Laboratory Tests 08/14/17 0744: Anion Gap 11, Estimated GFR > 60, BUN/Creatinine Ratio 17.1 Assessment/Plan Assessment: 32 YO M smoker (1 pack/d) with significant PMH of alcohol abuse, hepatitis c with negative viral load, 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 We will admit the patient on general medicine floor for alcohol detox. Alcohol detox/opioid withdrawal: -Patient is on IV lorazepam when necessary and by mouth lorazepam 2 mg every 6. His ciwa score is 26 those vitals are stable. We will follow the CIWA protocal and will give him IV lorazepam according to CIWA score. -Patient was seen by psychiatry who suggested to add Bentyl, Atarax for anxiety, baclofen, clonidine, ibuprofen to help with this opioid withdrawal. We will continue the same. -High dose thiamine with vitamin B12 and folic acid. -Omeprazole 40 mg daily. Zofran IV as needed. -Seizure precautions -Aspiration precautions -Regular diet. -Replace electrolytes as needed. -Patient is homeless and social worker assistant is involved in the care. DVT prophylaxis: Mechanical and Lovenox subcutaneous. CODE STATUS: Problem List: 1. Alcohol withdrawal 2. Acute opioid withdrawal Pain Ratin Pain Location: NONE Pain Goal: Remain pain free Pain Plan: TYLENOL Tomorrow's Labs & Rationales: NONE Mauro Cuenca MD 08/14/17 1537: Attending MD Review Statement Attending Statement Attending MD Statement: examined this patient, discuss w/resident/PA/FARMWORKER GENERAL, agreed w/resident/PA/FARMWORKER GENERAL, reviewed EMR data (avail), discussed with nursing, amended to note Attending Assessment/Plan: The patient was seen initially in the morning. Noted he had been taking Xanax 1 mg tabs up to 6 tabs/day (6 mg daily) prior to admission. Need to treat patient for alcohol, benzo, opioid withdrawal. We increased dose of Ativan to 4 mg and added gabapentin. In spite of changes the patient left AMA (without signing forms). He had informed me that he did this at [facility] 2 weeks ago and did not complete detox there as well.
[2017-08-14 07:37] VITALS: BP 110/78
--- NOTE | 2017-08-14 13:22 | Event Note ---
Event Note Event Note: Paged to come to patient who was threatening to leave AGAINST MEDICAL ADVICE around 12:45 p.m today. However shortly after this the patient left the hospital AGAINST MEDICAL ADVICE without signing paperwork before he could be reevaluated. Of note, earlier today at around 12 noon, patient stated that he wanted to leave the floor and go use an [employer] machine on the ground floor. He stated that his friend was coming to see him and he wanted to pay his friend some money that he owed. The patient was told that he could not leave the medical floor and that when his friend arrived he could give him his [employer] card so he could withdraw the money for himself. Of note, he was fully dressed at the time and was alert, oriented 3 and had full capacity to make medical decisions. He was also walking and was steady on his feet. Earlier today patient admitted that he had been discharged AGAINST MEDICAL ADVICE from [facility] after starting alcohol detox there. In view of the patient's polysubstance abuse and previous discharge AGAINST MEDICAL ADVICE from [facility], and also now from our own facility, it would be prudent to not rehospitalize him for the same indication in future.
--- NOTE | 2017-08-14 13:46 | Discharge Summary ---
Visit Information Visit Dates Admission Date: 08/12/17 Discharge Date: 08/14/17 Hospital Course Course Attending Physician: Judith MOSELEY,Omid Primary Care Physician: Patient Has No Primary Care Dr Hospital Course: 32 YO M smoker (1 pack/d) with significant PMH of alcohol abuse, hepatitis c with negative viral load, 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 Patient reported that he has been drinking alcohol 1-2 pints every day for last 4 months. Patient's last drink was yesterday after that he decided to quit alcohol and came to ED with alcohol withdrawal symptoms. Patient also reported that last time he got alcohol detox treatment at [facility] and he remained sober for 4 weeks. After the patient again started to drink alcohol. Patient reported that he vomited once but doesn't remember if he had any blood in it. During the interview patient became agitated as he was thinking that we were disturbing his sleep and he had to answer the questions again and again. We explained him that we are going to admit him that we have to interview him again. Patient also reported the use of iv cocaine and heroine every day and last time he used yesterday. Patient also reported that he is positive for hep C with negative viral load in 2002 and never got the treatment. He also reported having seizures due to alcohol withdrawal a month ago but never been admitted to the hospital. Patient also reported having history of cocaine-induced arrhythmia in 2011. Patient denied any chest pain, short of breath, chills, fever, lumps or bumps in the neck, abdominal pain, diarrhea, depression, loss of appetite, loss of consciousness, palpitation and dysuria. Hospital course Patient was admitted in Gen. medical floor for alcohol and opioid withdrawal.His U tox was positive for cocaine, marijuana, and methadone in ED. patient treated with Ativan, clonidine, Bentyl, Atarax. Patient was scoring 4-26 in CIWA. Psychiatry was on board who suggested to continue the current management. On day 2 of hospital admission patient left the hospital AGAINST MEDICAL ADVICE despite explaining him the complications and harm of not getting treated for alcohol and opioid withdrawal. Allergies: Coded Allergies: No Known Allergies (08/11/17) Disposition Summary Disposition Principal Diagnosis: Alcohol/opiate withdrawal Additional Diagnosis: Polysubstance abuse Discharge Disposition: left against medical adv Discharge Instructions General Discharge Information Code Status: Full Code Patient's Diet: Regular diet Patient's Activity: As tolerated Follow-Up Instructions/Appts: Please follow-up with your primary care provider within 1-2 weeks of discharge. Copies To: HAS NO PROVIDED
== END 2017-08-14 12:48 | disposition left against medical advice (07) | DRG 770 ==
LOC: ERH 20:23 → 2NB 08-12 02:15 → ERHI 08-12 02:15 → 2NB 08-12 02:15 → ERHI 08-12 07:34 → ENRESERV 08-12 15:56 → ENTRNSPT 08-12 16:37 → EDTRNSPTSTS 08-12 17:02 → EDTRNSPT 08-12 17:02 → 2NB 08-12 17:04 → CMPTRNSPT 08-12 17:16 → 2NB 08-14 12:48
PROVIDERS: Physician Assistant
DX: F10.239 Alcohol dependence with withdrawal, unspecified (principal); B18.2 Chronic viral hepatitis C; M79.1 Myalgia; F11.23 Opioid dependence with withdrawal; F32.9 Major depressive disorder, single episode, unspecified; F17.200 Nicotine dependence, unspecified, uncomplicated
CPT/HCPCS: 2NBSP; 36415; 36592; 80307; 82436; 93005; 93010; 96361; 96374; 96375; 99291; G0480; J1650; J1885; J2405; J2765; J3101; J3490; J7060; Q2036

== ENCOUNTER 2017-08-16 20:41 | Inpatient (IN) | payer OTHER ==
[~2017-08-16] VITALS: Ht 180.3 cm; Wt 72.6 kg
[2017-08-16 21:03] VITALS: BP 136/87
--- NOTE | 2017-08-16 21:31 | ED GENERAL ADULT ---
History of Present Illness General Chief Complaint: ETOH/Drug Related Complaint Stated Complaint: DETOX FROM BENZO'S AND ETOH Source: patient, old records Exam Limitations: no limitations Vital Signs & Intake/Output Vital Signs & Intake/Output Vital Signs Date Time Temp Pulse Resp B/P B/P Pulse O2 O2 Flow FiO2 Mean Ox Delivery Rate 08/17 1025 97.4 86 18 101/55 08/17 1023 97.4 86 18 101/55 08/17 1015 97.4 86 18 101/55 99 08/17 0741 98.0 82 18 101/57 08/17 0702 98.0 82 18 101/57 99 Room Air 08/17 0510 97.0 81 16 101/56 08/17 0510 97.0 81 16 101/56 99 Room Air 08/17 0304 97.7 87 16 96/44 08/17 0254 97.7 87 16 96/44 97 Room Air 08/17 0040 98.4 92 16 109/64 08/16 2205 97.8 79 18 108/70 08/16 2205 97.8 79 18 108/70 96 Room Air 08/16 2103 94 18 136/87 08/16 2103 98.1 86 18 136/87 99 ED Intake and Output 08/17 0000 08/16 1200 Intake Total 0 Output Total Balance 0 Intake, Oral 0 Patient 160 lb Weight Allergies Coded Allergies: No Known Allergies (08/11/17) Reconcile Medications No Known Home Medications Triage Note: 32M RETURNS AFTER BEING SEEN LAST WEEK FOR DETOX AND LEAVING ON DAY 2. LAST DRINK WAS THIS MORNING, AND HAS BEEN USING XANAX. AVERAGES 5-6MG PER DAY, LAST DOSE YESTERDAY. ALSO ENDORSES HEROIN USE AND CRACK USE TODAY. HX OF HEART ARRYTHMIA. IMMEDIATELY TO EKG [place]. DENIES SI/HI OR VH/AH Triage Nurses Notes Reviewed? yes HPI: Patient left AMA 2 days ago after admission for alcohol withdrawal. The patient started drinking and again to benzodiazepines. Patient also used crack cocaine yesterday. Patient denies any suicidal or homicidal ideations. Patient states that he knows he messed up and really needs help. (Gloria MOSELEY,[place]) Past History Travel History Traveled to [place] past 21 day No Medical History Any Pertinent Medical History? see below for history Neurological: SEIZURE WITHDRAWL DUE TO ALCOHOL EENT: NONE Cardiovascular: NONE Respiratory: NONE Gastrointestinal: NONE Hepatic: NONE Renal: NONE Musculoskeletal: NONE Psychiatric: NONE Endocrine: NONE Blood Disorders: HEP C History of MRSA: No History of VRE: No History of CDIFF: No Surgical History Surgical History: non-contributory Psychosocial History Who do you live with Friend What is your primary language Japanese Tobacco Use: Current Daily Use Daily Tobacco Use Amount/Type: => 5 Cigarettes daily ETOH Use: alcoholic Illicit Drug Use: cocaine, benzodiazepines Family History Hx Contributory? No (Gloria MOSELEY,[place]) Review of Systems Review of Systems Constitutional: Reports: no symptoms. EENTM: Reports: no symptoms. Respiratory: Reports: no symptoms. Cardiovascular: Reports: no symptoms. GI: Reports: see HPI, nausea. Genitourinary: Reports: no symptoms. Musculoskeletal: Reports: no symptoms. Skin: Reports: no symptoms. Neurological/Psychological: Reports: see HPI, anxiety. Hematologic/Endocrine: Reports: no symptoms. Immunologic/Allergic: Reports: no symptoms. All Other Systems: Reviewed and Negative (Gloria MOSELEY,[place]) Physical Exam Physical Exam General Appearance: well developed/nourished, alert, awake, anxious, moderate distress Head: atraumatic, normal appearance Eyes: Bilateral: PERRL, EOMI. Ears, Nose, Throat: normal pharynx, normal ENT inspection, hearing grossly normal Neck: normal inspection, supple, full range of motion Respiratory: normal breath sounds, chest non-tender, no respiratory distress, lungs clear Cardiovascular: regular rate/rhythm, normal peripheral pulses Gastrointestinal: normal bowel sounds, soft, non-tender, no organomegaly Back: normal inspection, normal range of motion Extremities: normal inspection, normal capillary refill, normal range of motion, no edema Neurologic/Psych: no motor/sensory deficits, awake, alert, oriented x 3, normal gait, normal mood/affect Skin: intact, normal color, warm/dry Lymphatic: no anterior cervical petra Core Measures ACS in differential dx? No CVA/TIA Diagnosis: No Sepsis Present: No Sepsis Focused Exam Completed? No (Gloria MOSELEY,[place]) Progress Differential Diagnoses I considered the following diagnoses in my evaluation of the patient: [ALCOHOL DEPENDENCY IN ACUTE WITHDRAWAL, BENZO DEPENDENCY IN ACUTE WITHDRAWAL] Plan of Care: Orders Procedure Date/time Status Regular Diet 08/18 D Active Regular Diet 08/17 B Active OXYGEN SETUP (GEN) 08/17 1206 Active Saline Lock 08/17 1206 Active Admit to inpatient 08/17 1206 Active Vital Signs 08/17 1206 Active Activity/Ambulation 08/17 120 Active Code Status 08/17 1205 Active CASE MANAGEMENT CONSULT 08/16 2130 Active EKG 08/16 2106 Active CIWA 08/16 2042 Active URINE DRUG SCREEN FOR ER ONLY 08/16 2042 Complete ETHANOL 08/16 2042 Complete COMPREHENSIVE METABOLIC PANEL 08/16 2042 Complete CBC WITHOUT DIFFERENTIAL 08/16 2042 Complete Current Medications Sig/Yulisa Start time Last Medication Dose Stop Time Status Admin Clonidine 0.1 MG TID 08/17 1000 UNVr 08/17 (Catapres) 1023 Gabapentin 300 MG Q8 08/17 0820 UNVr 08/17 (Neurontin) 0834 Laboratory Tests 08/16/172137: Anion Gap 16, Estimated GFR > 60, BUN/Creatinine Ratio 13.3, Glucose 108 H, Calcium 10.3 H, Total Bilirubin 0.8, AST 26, ALT 33, Alkaline Phosphatase 51, Total Protein 8.1, Albumin 4.8, Globulin 3.3, Albumin/Globulin Ratio 1.5, CBC w Diff NO MAN DIFF REQ, RBC 4.86, MCV 88.1, MCH 29.4, MCHC 33.3, RDW 13.8, MPV 7.9 , Gran % 71.4, Lymphocytes % 22.1, Monocytes % 5.2, Eosinophils % 1.1, Basophils % 0.2, Absolute Granulocytes 8.2 H, Absolute Lymphocytes 2.5, Absolute Monocytes 0.6, Absolute Eosinophils 0.1, Absolute Basophils 0, Serum Alcohol < 10.0 08/16/172134: Urine Opiates Screen > 4000.00 H, Methadone Screen 64, Barbiturate Screen < 60, Ur Phencyclidine Scrn < 6.00, Amphetamines Screen 355, U Benzodiazepines Scrn < 85, Urine Cocaine Screen > 1000 H, Urine Cannabis Screen 54.10 H 11:42 PM 08/16 PM PATIENT SIGNED OUT TO ME BY DR RUSSELL, PENDING CASE MANAGEMENT EVALUATION, SIGNED OUT AMA 2 DAYS AGO. (Gucci MOSELEY,Yuliana) Initial ED EKG: NSR, no ST T wave changes Hand-Off Endorsed To: Yuliana Duckworth MD Endorsed Time: 2300 Pending: consult (CASEMANAGEMENT), labs (Nura Russell MD) Hand-Off Endorsed To: Foster Velez MD Endorsed Time: 0700 Pending: consult (Gucci MOSELEY,Yuliana) Comments: Case management received authorization for hospitalization. (Foster Velez MD) Departure Departure Disposition: STILL A PATIENT Condition: Stable Referrals: Patient Has No Primary Care Dr (PCP/Family) Prescriptions: Current Visit Scripts No Known Home Medications (Nura Russell MD) Departure Time of Disposition: 1154 Clinical Impression Primary Impression: Alcohol dependency Secondary Impressions: Polysubstance dependence including opioid type drug with complication, episodic abuse Departure Forms: General Discharge Information Alcohol Withdrawl Admission ED Alcohol Detox Admission d/t: CIWA Score >15 (Foster Velez MD) Critical Care Note Critical Care Note Critical Care Time: non-applicable (Nura Russell MD)
[2017-08-16 21:44] LABS: ABSOLUTE BASOPHIL COUNT 0 /CUMM (0.0-0.2); ABSOLUTE EOSINOPHIL COUNT 0.1 /CUMM (0.0-0.7); ABSOLUTE GRANULOCYTE CT 8.2 /CUMM (1.4-6.5); ABSOLUTE LYMPH COUNT 2.5 /CUMM (1.2-3.4); ABSOLUTE MONOCYTE COUNT 0.6 /CUMM (0.10-0.60); BASOPHIL % 0.2 % (0.0-2.0); EOSINOPHIL % 1.1 % (0-5); GRANULOCYTE % 71.4 % (42.2-75.2); HEMATOCRIT 42.8 % (42-52); MEAN CORPUSCULAR HGB 29.4 PG (27.0-31.0); MEAN CORPUSCULAR HGB CONC 33.3 G/DL (33.0-37.0); MEAN CORPUSCULAR VOLUME 88.1 FL (80.0-94.0); MEAN PLATELET VOLUME 7.9 FL (7.4-10.4); PLATELET COUNT 288 /CUMM (130-400); RBC DISTRIBUTION WIDTH 13.8 % (11.5-14.5); RED BLOOD CELL CT 4.86 /CUMM (4.70-6.10)
[2017-08-16 21:48] LABS: WHITE BLOOD CELL COUNT 11.5 /CUMM (4.8-10.8)
[2017-08-16 22:05] VITALS: BP 108/70
[2017-08-17] VITALS (12 sets, daily range): BP systolic 96–114; BP diastolic 44–78
--- NOTE | 2017-08-17 12:35 | History & Physical ---
Nael MOSELEY,[facility] 08/17/17 1235: General Information and HPI MD Statement: I have seen and personally examined FRANCISCA LIU and documented this H&P. The patient is a 32 year old M who presented with a patient stated chief complaint of Etoh intoxication. 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 Last drink was yesterday. Denies any seizure like activities, hallucination, increasing anxiety, suicidal or homicidal ideation. He reports using Benzos ( xanax) in a daily basis, he also admits to using cocaine. He reports to drinking 1 pint of vodka on a daily basis fo 6 months. He denies any life stressors, he states that he regrest his decision to leave AMA last time and that he is commited to getting hlep this time. His endorsing nausea and vomiting, denies any chest pain, palpitation or shortness of breath. Allergies/Medications Allergies: Coded Allergies: No Known Allergies (08/11/17) Home Med list No Known Home Medications Past History Travel History Traveled to [place] past 21 day No Medical History Neurological: SEIZURE WITHDRAWL DUE TO ALCOHOL EENT: NONE Cardiovascular: NONE Respiratory: NONE Gastrointestinal: NONE Hepatic: NONE Renal: NONE Musculoskeletal: NONE Psychiatric: NONE Endocrine: NONE Blood Disorders: HEP C History of MRSA: No History of VRE: No History of CDIFF: No Surgical History Surgical History: non-contributory Past Family/Social History Psychosocial History ETOH Use: alcoholic Illicit Drug Use: cocaine, benzodiazepines Review of Systems Review of Systems Constitutional: Reports: see HPI. EENTM: Reports: no symptoms. Cardiovascular: Reports: no symptoms. Respiratory: Reports: no symptoms. GI: Reports: nausea, vomiting. Genitourinary: Reports: no symptoms. Musculoskeletal: Reports: no symptoms. Skin: Reports: no symptoms. Neurological/Psychological: Reports: see HPI. Hematologic/Endocrine: Reports: no symptoms. Immunologic/Allergic: Reports: no symptoms. Exam & Diagnostic Data Last 24 Hrs of Vital Signs/I&O Vital Signs Date Time Temp Pulse Resp B/P B/P Pulse O2 O2 Flow FiO2 Mean Ox Delivery Rate 08/17 1250 97.6 91 18 99/52 08/17 1025 97.4 86 18 101/55 08/17 1023 97.4 86 18 101/55 08/17 1015 97.4 86 18 101/55 99 08/17 0741 98.0 82 18 101/57 08/17 0702 98.0 82 18 101/57 99 Room Air 08/17 0510 97.0 81 16 101/56 08/17 0510 97.0 81 16 101/56 99 Room Air 08/17 0304 97.7 87 16 96/44 08/17 0254 97.7 87 16 96/44 97 Room Air 08/17 0040 98.4 92 16 109/64 08/16 2205 97.8 79 18 108/70 08/16 2205 97.8 79 18 108/70 96 Room Air 08/16 2103 94 18 136/87 08/16 2103 98.1 86 18 136/87 99 Intake & Output 08/17 1600 08/17 0800 08/17 0000 Intake Total 0 Output Total Balance 0 Intake, Oral 0 Patient 72.575 kg Weight Physical Exam General Appearance Alert, Oriented X3, Cooperative Skin No Rashes, No Significant Lesion Skin Temp/Moisture Exam: Warm/Dry Sepsis Skin Exam (color): Normal for Ethnicity HEENT Atraumatic, Mucous Membr. 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 Impression * Etoh Detox * Polysubstance abuse : Marijuana, cocaine and opiods * Leukocytosis Plan Admit to gen med CIME monitoring continue Lorazepam 2mg q6 Lorazepma prn per CIWA Thiamine/folate/MVT Social consult psych consult As Ranked By This Provider Problem List: 1. Alcohol withdrawal 2. Polysubstance dependence including opioid type drug with complication, episodic abuse Core Measures/Misc (02/15) Acute Coronary Syndrome ACS Diagnosis: No Congestive Heart Failure Congestive Heart Failure Diagnosis No Cerebrovascular Accident CVA/TIA Diagnosis: No VTE (View Protocol) VTE Risk Factors Acute Medical Illness No Mechanical VTE Prophylaxis d/t N/A MechProphylax Ordered No VTE Pharm Prophylaxis d/t NA PharmProphylax ordered Sepsis (View protocol) Sepsis Present: No Savita Mendoza MD 08/17/17 1454: Attending MD Review Statement Attending Statement Attending MD Statement: examined this patient, discuss w/resident/PA/TRANSPORT RN, agreed w/resident/PA/TRANSPORT RN, reviewed EMR data (avail), discussed with nursing, discussed with case mgmt, amended to note Attending Assessment/Plan: 32-year-old male with past medical history significant for alcohol use, alcohol withdrawal seizure, history of benzodiazepine dependence, history of opiate dependence, polysubstance abuse with recent admission to [facility] with alcohol, benzo and opiate use and left AMA now coming in with that so withdrawal symptoms. Patient has been having these jerking movements. He also feels very sick overall. Feels dehydrated, fatigued, have some chills. He said that he is hurting all over. Patient was afebrile in the emergency room. His CIWA scores are running high. Patient has been receiving gabapentin, Ativan in the ER. Vital Signs Date Time Temp Pulse Resp B/P B/P Pulse O2 O2 Flow FiO2 Mean Ox Delivery Rate 08/17 1351 97.6 90 18 93/59 98 08/17 1348 97.6 91 18 99/52 98 Room Air 08/17 1250 97.6 91 18 99/52 08/17 1025 97.4 86 18 101/55 08/17 1023 97.4 86 18 101/55 08/17 1015 97.4 86 18 101/55 99 08/17 0741 98.0 82 18 101/57 08/17 0702 98.0 82 18 101/57 99 Room Air 08/17 0510 97.0 81 16 101/56 08/17 0510 97.0 81 16 101/56 99 Room Air 08/17 0304 97.7 87 16 96/44 08/17 0254 97.7 87 16 96/44 97 Room Air 08/17 0040 98.4 92 16 109/64 08/16 2204 97.8 79 18 108/70 08/16 2204 97.8 79 18 108/70 96 Room Air 08/16 210 94 18 136/87 08/16 2102 98.1 86 18 136/ 99 on exam; aox3, nad. cv; s1,s2, rrr resp; clear abd; soft, nt, bs+ ext: No edema. Laboratory Tests 08/16 Chemistry Sodium (137 - 145 mmol/L) 142 Potassium (3.5 - 5.1 mmol/L) 4.5 Chloride (98 - 107 mmol/L) 96 L Carbon Dioxide (22 - 30 mmol/L) 31 H Anion Gap (5 - 16) 16 BUN (9 - 20 mg/dL) 12 Creatinine (0.7 - 1.2 mg/dL) 0.9 Estimated GFR (>60 ml/min) > 60 BUN/Creatinine Ratio (7 - 25 %) 13.3 Glucose (65 - 99 mg/dL) 108 H Calcium (8.4 - 10.2 mg/dL) 10.3 H Total Bilirubin (0.2 - 1.3 mg/dL) 0.8 AST (17 - 59 U/L) 26 ALT (21 - 72 U/L) 33 Alkaline Phosphatase (< 127 U/L) 51 Total Protein (6.3 - 8.2 g/dL) 8.1 Albumin (3.5 - 5.0 g/dL) 4.8 Globulin (1.9 - 4.2 gm/dL) 3.3 Albumin/Globulin Ratio (1.1 - 2.2 %) 1.5 Hematology CBC w Diff NO MAN DIFF REQ WBC (4.8 - 10.8 /CUMM) 11.5 H RBC (4.70 - 6.10 /CUMM) 4.86 Hgb (14.0 - 18.0 G/DL) 14.3 Hct (42 - 52 %) 42.8 MCV (80.0 - 94.0 FL) 88.1 MCH (27.0 - 31.0 PG) 29.4 MCHC (33.0 - 37.0 G/DL) 33.3 RDW (11.5 - 14.5 %) 13.8 Plt Count (130 - 400 /CUMM) 288 MPV (7.4 - 10.4 FL) 7.9 Gran % (42.2 - 75.2 %) 71.4 Lymphocytes % (20.5 - 51.1 %) 22.1 Monocytes % (1.7 - 9.3 %) 5.2 Eosinophils % (0 - 5 %) 1.1 Basophils % (0.0 - 2.0 %) 0.2 Absolute Granulocytes (1.4 - 6.5 /CUMM) 8.2 H Absolute Lymphocytes (1.2 - 3.4 /CUMM) 2.5 Absolute Monocytes (0.10 - 0.60 /CUMM) 0.6 Absolute Eosinophils (0.0 - 0.7 /CUMM) 0.1 Absolute Basophils (0.0 - 0.2 /CUMM) 0 Toxicology Urine Opiates Screen (>2000 NG/ML) > 4000.00 H Methadone Screen (>300 NG/ML) 64 Barbiturate Screen (>200 NG/ML) < 60 Ur Phencyclidine Scrn (>25 NG/ML) < 6.00 Amphetamines Screen (>1000 NG/ML) 355 U Benzodiazepines Scrn (>200 NG/ML) < 85 Urine Cocaine Screen (>300 NG/ML) > 1000 H Urine Cannabis Screen (>50 NG/ML) 54.10 H Serum Alcohol (<10 MG/DL) < 10.0 EKG shows sinus rhythm. A/P; 32-year-old male with past medical history significant for alcohol use, alcohol withdrawal seizure, history of benzodiazepine dependence, history of opiate dependence, polysubstance abuse admitted with acute: Intoxication, benzodiazepine withdrawal. U tox also positive for opiates and cannabis. Patient admitted to medicine floor. He will be started on scheduled and when necessary Ativan per [facility] protocol. He will also be started on multivitamin, folate and thiamine. Opiate withdrawal should be treated with symptomatic treatment. Social work and psychiatry consult would be obtained. Patient received gabapentin in the emergency room for benzo withdrawal which can be continued. DVT prophylaxis: Lovenox. Full code.
[2017-08-18 06:50] VITALS: BP 106/60
--- NOTE | 2017-08-18 07:24 | PN- Housestaff ---
Em Bryan MD 08/18/17 0723: Subjective Follow-up For: POLYSUBSTANCE ABUSE Subjective: Patient seen and examined at bedside. No overnight events. Patient complains of anxiety and not feeling well. He denies nausea, vomiting, abdominal pain, tremors, hallucinations, suicidal thoughts. Review of Systems Constitutional: Reports: no symptoms. Cardiovascular: Reports: no symptoms. Respiratory: Reports: no symptoms. Gastrointestinal: Reports: no symptoms. Objective Last 24 Hrs of Vital Signs/I&O Vital Signs Date Time Temp Pulse Resp B/P B/P Pulse O2 O2 Flow FiO2 Mean Ox Delivery Rate 08/18 1432 98.1 80 20 100/72 98 Room Air 08/18 1220 68 18 112/60 08/18 0916 90 114/78 08/18 0650 98.2 70 20 106/60 98 Room Air 08/17 2204 83 103/66 08/17 2200 83 103/66 08/17 2157 98.6 83 18 103/66 98 Room Air 08/17 2000 98.1 90 18 107/66 08/17 1905 98.1 90 18 107/66 100 Room Air 08/17 1753 84 18 114/78 08/17 1753 84 18 114/78 97 Room Air 08/17 1751 80 18 114/78 08/17 1616 75 18 108/58 08/17 1615 75 16 108/53 97 Room Air Intake & Output 08/18 1600 08/18 0800 08/18 0000 Intake Total 800 240 480 Output Total Balance 800 240 480 Intake, IV 100 Intake, Oral 700 240 480 Number 0 Bowel Movements Patient 160 lb Weight Weight Reported by Patient Measurement Method Physical Exam General Appearance: Alert, Oriented X3, Cooperative, No Acute Distress Cardiovascular: Normal S1, Normal S2, No Murmurs Lungs: Normal Air Movement Abdomen: Normal Bowel Sounds, Soft, No Tenderness, No Hepatospenomegaly Neurological: Normal Speech, Strength at 5/5 X4 Ext, Normal Tone, Sensation Intact Extremities: No Edema Current Medications: Current Medications Sig/Yulisa Start time Last Medication Dose Route Stop Time Status Admin Baclofen 10 MG Q6 PRN 08/18 0800 AC 08/18 PO 0914 Clonidine 0 .STK-MED ONE 08/17 1742 DC PO Clonidine 0.1 MG TID 08/17 1000 AC 08/18 PO 0916 Dicyclomine HCl 20 MG Q6 PRN 08/18 0800 AC 08/18 PO 1219 Enoxaparin Sodium 40 MG DAILY 08/18 1000 AC SC Folic Acid 1 MG DAILY 08/17 1246 AC 08/18 PO 08/19 1001 0824 Gabapentin 300 MG Q8H 08/17 1630 AC 08/18 PO 0749 Hydroxyzine HCl 50 MG Q6 PRN 08/18 0800 AC 08/18 PO 0914 Lorazepam 2 MG Q4H 08/18 1600 AC PO Lorazepam 2 MG Q8 08/18 1400 DC PO Lorazepam 2 MG Q6 08/18 1200 DC 08/18 PO 1135 Lorazepam 2 MG Q6 08/17 1800 DC 08/18 PO 0640 Lorazepam 0 .STK-MED ONE 08/17 1742 DC PO Lorazepam 2 MG Q2P PRN 08/17 1245 AC 08/18 IV 1401 Lorazepam 1 MG Q2P PRN 08/17 1245 AC 08/18 IV 0753 Multivitamins 1 TAB DAILY 08/17 1246 AC 08/18 PO 0824 Nicotine 14 MG DAILY 08/18 0800 AC 08/18 TOP 0824 Nicotine 14 MG ONCE ONE 08/17 2030 DC TOP 08/17 2031 Ondansetron HCl 4 MG Q6P PRN 08/17 1315 AC 08/18 IV 1219 Patient Medication 1 ED ONE ONE 08/18 1530 DC Teaching ED 08/18 1531 Thiamine HCl 100 MG DAILY 08/17 1245 AC 08/18 PO 08/19 1001 0825 Last 24 Hrs of Lab/Jaguar Results Last 24 Hrs of Labs/Mics: Laboratory Tests 08/18/17 0720: Anion Gap 13, Estimated GFR > 60, BUN/Creatinine Ratio 16.7, CBC w Diff NO MAN DIFF REQ, RBC 4.60 L, MCV 88.8, MCH 29.4, MCHC 33.1, RDW 13.4, MPV 8.4, Gran % 49.5, Lymphocytes % 38.6, Monocytes % 7.9, Eosinophils % 3.4, Basophils % 0.6, Absolute Granulocytes 3.1, Absolute Lymphocytes 2.4, Absolute Monocytes 0.5, Absolute Eosinophils 0.2, Absolute Basophils 0 Assessment/Plan Assessment: 32 YO M smoker (1 pack/d) with significant PMH of alcohol abuse, hepatitis c with negative viral load, 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 This time patient came to ED requesting EtOH detox. Alcohol detox/opioid withdrawal: -Patient is on IV lorazepam when necessary and by mouth lorazepam 2 mg every 6. His ciwa score is 12 and vitals are stable. We will follow the CIWA protocal and will give him IV lorazepam according to CIWA score. -Patient was seen by psychiatry who suggested to add Bentyl, Atarax for anxiety, baclofen, clonidine, ibuprofen to help with this opioid withdrawal during last admission. We will continue the same. Psychiatry follow-up appreciated. -High dose thiamine with vitamin B12 and folic acid. -Omeprazole 40 mg daily. Zofran IV as needed. -Seizure precautions -Aspiration precautions -Regular diet. -Replace electrolytes as needed. -Patient is homeless and protective services social worker is involved in the care. DVT prophylaxis: Mechanical and Lovenox subcutaneous. Problem List: 1. Polysubstance dependence including opioid type drug with complication, episodic abuse 2. Acute opioid withdrawal 3. Alcohol withdrawal Pain Ratin Pain Location: none Pain Goal: Remain pain free Pain Plan: tylenol Tomorrow's Labs & Rationales: cbc,bep Omid Wong 08/18/17 1139: Attending MD Review Statement Attending Statement Attending MD Statement: examined this patient, discuss w/resident/PA/MARKET ANALYST, agreed w/resident/PA/MARKET ANALYST, discussed with family, reviewed EMR data (avail), discussed with nursing, discussed with case mgmt, reviewed images, amended to note Attending Assessment/Plan: 32-year-old male with past medical history significant for alcohol use, alcohol withdrawal seizure, history of benzodiazepine dependence, history of opiate dependence, polysubstance abuse admitted with acute: Intoxication, benzodiazepine withdrawal. U tox also positive for opiates and cannabis. No new complaints, vital stable. Patient admitted to medicine floor. Continue Ativan per CIWA protocol. Contniue multivitamin, folate and thiamine. Social work and psychiatry consult f/u. Continue gabapentin. Monitor CIWA and hemodynamics. DVT prophylaxis: Lovenox. Full code.
[2017-08-18 08:38] LABS: ABSOLUTE BASOPHIL COUNT 0 /CUMM (0.0-0.2); ABSOLUTE EOSINOPHIL COUNT 0.2 /CUMM (0.0-0.7); ABSOLUTE GRANULOCYTE CT 3.1 /CUMM (1.4-6.5); ABSOLUTE LYMPH COUNT 2.4 /CUMM (1.2-3.4); ABSOLUTE MONOCYTE COUNT 0.5 /CUMM (0.10-0.60); BASOPHIL % 0.6 % (0.0-2.0); EOSINOPHIL % 3.4 % (0-5); GRANULOCYTE % 49.5 % (42.2-75.2); HEMATOCRIT 40.9 % (42-52); MEAN CORPUSCULAR HGB 29.4 PG (27.0-31.0); MEAN CORPUSCULAR HGB CONC 33.1 G/DL (33.0-37.0); MEAN CORPUSCULAR VOLUME 88.8 FL (80.0-94.0); MEAN PLATELET VOLUME 8.4 FL (7.4-10.4); PLATELET COUNT 260 /CUMM (130-400); RBC DISTRIBUTION WIDTH 13.4 % (11.5-14.5); WHITE BLOOD CELL COUNT 6.2 /CUMM (4.8-10.8)
[2017-08-18 12:20] VITALS: BP 112/60
[2017-08-18 14:32] VITALS: BP 100/72
[2017-08-18 22:47] VITALS: BP 130/72
[2017-08-19 06:22] VITALS: BP 110/72
--- NOTE | 2017-08-19 07:19 | PN- Housestaff ---
Irvin MOSELEY,Em 08/19/17 0719: Subjective Follow-up For: Polysubstance abuse Subjective: Patient was seen and examined at bedside. He was lying in his bed complaining of anxiety, nausea, vague abdominal pain. He denies chest pain, shortness of breath, hallucination, suiicdal ideation. Review of Systems Constitutional: Reports: see HPI. Objective Last 24 Hrs of Vital Signs/I&O Vital Signs Date Time Temp Pulse Resp B/P B/P Pulse O2 O2 Flow FiO2 Mean Ox Delivery Rate 08/19 0852 76 116/80 08/19 0622 98.1 73 22 110/72 98 Room Air 08/18 2247 97.4 77 130/72 99 Room Air 08/18 2244 77 130/72 08/18 1638 70 106/62 08/18 1432 98.1 80 20 100/72 98 Room Air Intake & Output 08/19 1600 08/19 0800 08/19 0000 Intake Total 600 360 600 Output Total 100 Balance 500 360 600 Intake, IV 100 Intake, Oral 500 360 600 Number 0 Bowel Movements Output, 100 Emesis Physical Exam General Appearance: Alert, Oriented X3, Cooperative, No Acute Distress Cardiovascular: Regular Rate, Normal S1, Normal S2, No Murmurs Lungs: Clear to Auscultation Abdomen: Soft, No Tenderness, No Hepatospenomegaly Neurological: Normal Speech, Strength at 5/5 X4 Ext, Normal Tone, Sensation Intact Current Medications: Current Medications Sig/Yulisa Start time Last Medication Dose Route Stop Time Status Admin Baclofen 10 MG Q6 PRN 08/18 0800 AC 08/18 PO 0914 Clonidine 0.1 MG TID 08/17 1000 AC 08/19 PO 0852 Dicyclomine HCl 20 MG Q6 PRN 08/18 0800 AC 08/18 PO 1219 Enoxaparin Sodium 40 MG DAILY 08/18 1000 AC SC Folic Acid 1 MG DAILY 08/17 1246 DC 08/19 PO 08/19 1001 0852 Gabapentin 300 MG Q8H 08/17 1630 AC 08/19 PO 0852 Hydroxyzine HCl 50 MG Q6 PRN 08/18 0800 AC 08/18 PO 2353 Lorazepam 2 MG Q4H 08/18 1600 AC 08/19 PO 0852 Lorazepam 2 MG Q2P PRN 08/17 1245 AC 08/19 IV 1245 Lorazepam 1 MG Q2P PRN 08/17 1245 AC 08/18 IV 1743 Multivitamins 1 TAB DAILY 08/17 1246 AC 08/19 PO 0852 Nicotine 14 MG DAILY 08/18 0800 AC 08/19 TOP 0852 Ondansetron HCl 4 MG Q6P PRN 08/17 1315 AC 08/19 IV 1029 Patient Medication 1 ED ONE ONE 08/19 1130 DC 08/19 Teaching ED 08/19 1131 1132 Patient Medication 1 ED ONE ONE 08/18 1530 DC 08/18 Teaching ED 08/18 1531 1743 Thiamine HCl 100 MG DAILY 08/17 1245 DC 08/19 PO 08/19 1001 0852 Tuberculin PPD 0.1 ML ONCE ONE 08/19 1400 DC ID 08/19 1401 Assessment/Plan Assessment: 32 YO M smoker (1 pack/d) with significant PMH of alcohol abuse, hepatitis c with negative viral load, 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 This time patient came to ED requesting EtOH detox. Alcohol detox/opioid withdrawal: -Patient is on IV lorazepam when necessary and by mouth lorazepam 2 mg every 6. His ciwa score is 11 and vitals are stable. Patient required 23 mg of Ativan including both by mouth and IV. We will follow the CIWA protocal and will give him IV lorazepam according to CIWA score. -Patient was seen by psychiatry who suggested to add Bentyl, Atarax for anxiety, baclofen, clonidine, ibuprofen to help with this opioid withdrawal during last admission. We will continue the same. Psychiatry follow-up appreciated. -High dose thiamine with vitamin B12 and folic acid. -Omeprazole 40 mg daily. Zofran IV as needed. -Seizure precautions -Aspiration precautions -Regular diet. -Replace electrolytes as needed. -Patient is homeless and social media project manager is involved in the care. DVT prophylaxis: Mechanical and Lovenox subcutaneous. Update-patient is working with the social media project manager Serene regarding placement at the rehabilitation center. In view of that tuberculin test was done today. We will repeat the test results on Thursday afternoon same time. Problem List: 1. Alcohol withdrawal 2. Polysubstance dependence including opioid type drug with complication, episodic abuse 3. Acute opioid withdrawal Pain Ratin Pain Location: none Pain Goal: Remain pain free Pain Plan: tylenol Tomorrow's Labs & Rationales: none Omid Wong 08/19/17 1056: Attending MD Review Statement Attending Statement Attending MD Statement: examined this patient, discuss w/resident/PA/CHIEF OF INTERNAL MEDICINE, agreed w/resident/PA/CHIEF OF INTERNAL MEDICINE, discussed with family, reviewed EMR data (avail), discussed with nursing, discussed with case mgmt, reviewed images, amended to note Attending Assessment/Plan: Patient admitted to medicine floor. Continue Ativan per CIWA protocol. Contniue multivitamin, folate and thiamine. Social work and psychiatry consult f/u. Continue gabapentin. Monitor CIWA and hemodynamics. DVT prophylaxis: Lovenox. Full code.
[2017-08-19 14:55] VITALS: BP 102/70
[2017-08-19 22:10] VITALS: BP 96/60
[2017-08-20] VITALS (8 sets, daily range): BP systolic 88–110; BP diastolic 60–80
--- NOTE | 2017-08-20 06:56 | PN- Housestaff ---
Irvin MOSELEY,Em 08/20/17 0656: Subjective Follow-up For: Alcohol use disorder Complaints: no complaints Subjective: Patient seen and examined at bedside by the medical team. No overnight events. Complaints of tremors both hands. He denies chest pain, diarrhea, abdominal pain, visual/tactile/auditory hallucination. He denies suicidal ideation. Review of Systems Constitutional: Reports: see HPI. Objective Last 24 Hrs of Vital Signs/I&O Vital Signs Date Time Temp Pulse Resp B/P B/P Pulse O2 O2 Flow FiO2 Mean Ox Delivery Rate 08/20 1441 97.6 85 20 88/64 97 Room Air 08/20 1000 98.4 72 18 108/60 08/20 0900 98.2 62 18 110/76 08/20 0834 60 106/80 08/20 0800 98.0 60 20 106/80 08/20 0637 98.0 60 20 106/80 95 Room Air 08/19 2210 98.0 72 18 96/60 100 Room Air 08/19 2056 72 96/60 08/19 1609 86 110/80 Intake & Output 08/20 1600 08/20 0800 08/20 0000 Intake Total 820 Output Total Balance 820 Intake, IV 20 Intake, Oral 800 Physical Exam General Appearance: Alert, Oriented X3, Cooperative, No Acute Distress Cardiovascular: Regular Rate, Normal S1, Normal S2, No Murmurs Lungs: Clear to Auscultation, Normal Air Movement Abdomen: Soft, No Tenderness, No Hepatospenomegaly Neurological: Normal Speech, Strength at 5/5 X4 Ext, Normal Tone, Sensation Intact Extremities: No Cyanosis, No Edema, Normal Pulses Current Medications: Current Medications Sig/Yulisa Start time Last Medication Dose Route Stop Time Status Admin Baclofen 10 MG Q6 PRN 08/18 0800 AC 08/19 PO 2216 Clonidine 0.1 MG TID 08/17 1000 AC 08/20 PO 0834 Dicyclomine HCl 20 MG Q6 PRN 08/18 0800 AC 08/19 PO 1522 Enoxaparin Sodium 40 MG DAILY 08/18 1000 AC SC Folic Acid 1 MG DAILY 08/20 1002 AC 08/20 PO 1155 Gabapentin 300 MG Q8H 08/17 1630 AC 08/20 PO 0834 Hydroxyzine HCl 50 MG Q6 PRN 08/18 0800 AC 08/19 PO 2216 Lorazepam 2 MG Q8 08/20 1400 DC PO Lorazepam 2.5 MG Q4 08/20 1400 AC PO Lorazepam 2 MG Q4H 08/18 1600 DC 08/20 PO 0833 Lorazepam 2 MG Q2P PRN 08/17 1245 DC 08/19 IV 2314 Lorazepam 1 MG Q2P PRN 08/17 1245 AC 08/20 IV 1007 Melatonin 3 MG ONCE ONE 08/20 0200 DC 08/20 PO 08/20 0201 0206 Multivitamins 1 TAB DAILY 08/17 1246 AC 08/20 PO 0834 Nicotine 14 MG DAILY 08/18 0800 AC 08/20 TOP 0833 Ondansetron HCl 4 MG Q6P PRN 08/17 1315 AC 08/19 IV 1029 Thiamine HCl 100 MG DAILY 08/20 1002 AC 08/20 PO 1155 Zolpidem Tartrate 5 MG AT BEDTIME 08/20 2200 AC PO Assessment/Plan Assessment: This is a 32 yo gentleman active smoker (1 pack/d) with significant PMH of alcohol abuse with a questionable etoh withdrawal seizure, hepatitis c with negative viral load, 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 Assessment and plan Alcohol detox/opioid withdrawal: -Patient is on IV lorazepam when necessary and by mouth lorazepam 2 mg every 6. His ciwa score is 11 and vitals are stable. We will follow the CIWA protocal and will give him IV lorazepam according to CIWA score. -Patient was seen by psychiatry who suggested to add Bentyl, Atarax for anxiety, baclofen, clonidine, ibuprofen to help with this opioid withdrawal during last admission. Psychiatry followed him who suggested - suggest the patient should receive lorazepam 17 mg in the next 24 hours, 13 mg in the subsequent 24 hours, followed by 9 mg, then 5 mg, then 1 mg, then stop. -High dose thiamine with vitamin B12 and folic acid. -Omeprazole 40 mg daily. Zofran IV as needed. -Seizure precautions -Aspiration precautions -Regular diet. -Replace electrolytes as needed. -Patient is homeless and adoption social worker is involved in the care. Patient has a bed available [facility]. DVT prophylaxis: Mechanical and Lovenox subcutaneous. Problem List: 1. Alcohol dependency 2. Polysubstance dependence including opioid type drug with complication, episodic abuse 3. Acute opioid withdrawal Pain Ratin Pain Location: none Pain Goal: Remain pain free Pain Plan: tylenol Tomorrow's Labs & Rationales: narendra Omid Wong 08/20/17 1250: Attending MD Review Statement Attending Statement Attending MD Statement: examined this patient, discuss w/resident/PA/BRIDGE ATTACHER, agreed w/resident/PA/BRIDGE ATTACHER, discussed with family, reviewed EMR data (avail), discussed with nursing, discussed with case mgmt, reviewed images, amended to note Attending Assessment/Plan: Patient admitted to medicine floor. No new complaints. Continue Ativan per CIWA protocol. Contniue multivitamin, folate and thiamine. Social work and psychiatry consult f/u. Continue gabapentin. Monitor CIWA and hemodynamics. DVT prophylaxis: Lovenox. Full code.
--- NOTE | 2017-08-20 10:49 | Cons- Psychiatry ---
Psychiatric Consult Date of Consult: 08/20/17 Reason for Consult: "ETOH and polysubstance abuse, left AMA a few days ago, now requesting detox and IOP" History of Present Illness: 32-year-old single, male, presented to the ED on 08/16/2017 at 2108 requesting detox from opiates, cocaine, benzodiazepines and alcohol. He had originally self presented on 08/11/2017, but left AMA after 2 days of treatment. The patient refused an exam at that time. During that admission, he was seen by our on-call psychiatrist on 08/13/2017, who suggested starting opiate detox protocol, as well as alcohol and benzodiazepine detox protocol. Past medical history includes seizure in the setting of alcohol withdrawal, in untreated hepatitis C. Cocaine-induced arrhythmia in 2011. He had relapsed 4 months ago after 3 months sober, has been drinking 2 pints of whiskey daily, the last withdrawal seizure was one month ago. He had a recent detox at [facility]. He has an extensive history of inpatient rehabilitation for drugs and alcohol. He was served with a subpoena from a [place] court yesterday for a felony, per report. Allergies: Coded Allergies: No Known Allergies (08/11/17) Current Medications: Current Medications Sig/Yulisa Start time Last Medication Dose Route Stop Time Status Admin Baclofen 10 MG Q6 PRN 08/18 0800 AC 08/19 PO 2216 Clonidine 0.1 MG TID 08/17 1000 AC 08/20 PO 0834 Dicyclomine HCl 20 MG Q6 PRN 08/18 0800 AC 08/19 PO 1522 Enoxaparin Sodium 40 MG DAILY 08/18 1000 AC SC Folic Acid 1 MG DAILY 08/17 1246 DC 08/19 PO 08/19 1001 0852 Gabapentin 300 MG Q8H 08/17 1630 AC 08/20 PO 0834 Hydroxyzine HCl 50 MG Q6 PRN 08/18 0800 AC 08/19 PO 2216 Lorazepam 2 MG Q8 08/20 1400 AC PO Lorazepam 2 MG Q4H 08/18 1600 DC 08/20 PO 0833 Lorazepam 2 MG Q2P PRN 08/17 1245 DC 08/19 IV 2314 Lorazepam 1 MG Q2P PRN 08/17 1245 AC 08/20 IV 0815 Melatonin 3 MG ONCE ONE 08/20 0200 DC 08/20 PO 08/20 0201 0206 Multivitamins 1 TAB DAILY 08/17 1246 AC 08/20 PO 0834 Nicotine 14 MG DAILY 08/18 0800 AC 08/20 TOP 0833 Ondansetron HCl 4 MG Q6P PRN 08/17 1315 AC 08/19 IV 1029 Patient Medication 1 ED ONE ONE 08/19 1130 DC 08/19 Teaching ED 08/19 1131 1132 Thiamine HCl 100 MG DAILY 08/17 1245 DC 08/19 PO 08/19 1001 0852 Tuberculin PPD 0.1 ML ONCE ONE 08/19 1400 DC 08/19 ID 08/19 1401 1552 Past History Past Medical History Neurological: SEIZURE WITHDRAWL DUE TO ALCOHOL EENT: NONE Cardiovascular: ARRYTHMIA Respiratory: NONE Gastrointestinal: NONE Hepatic: NONE Renal: NONE Musculoskeletal: NONE Psychiatric: NONE Endocrine: NONE Blood Disorders: HEP C Cancer(s): NONE LABOR MEDIATOR/Reproductive: NONE Past Surgical History Surgical History: non-contributory Psychosocial History Strengths/Capabilities: Motivated for treatment. Physical Limitations (Interventions): None Psychiatric Treatment History Psych Treatment Psychiatric Treatment No (denies) Diagnosis: Depressive disorder unspecified Alcohol use disorder, recurrent, severe Benzodiazepine use disorder Opiate use disorder Cocaine use disorder Risk Factors: SA/MH hospitalized, substance abuse, isolate/no social support, lives alone, male (homeless) Substance Use/Abuse History Drug Use/Abuse Substances Used/Abused Yes Substance Used/Abused Alcohol (polysubstance abuse) First Use not evaluated Last Used Prior to admission, probably several days before How much used/taken 2 pints of whiskey How often daily For how long 4 months, after 3 months of sobriety Substance Abuse Treatment Substance Abuse Treatment Past Substance Abuse [place] Yes Inpatient Treatment Yes Outpatient Treatment Yes Location of Treatment most of the facilities within the state Reason for Treatment Polysubstance abuse Dates of Treatment within the last year, and previously Response to Treatment Unknown, but the patient has had periods of sobriety Comments: The patient reports that his best years were when he was on a methadone maintenance program in [place] for 40 years. He moved to [place] to take a job, stopped methadone unilaterally, and "I became an alcoholic." Assessment/Plan Mental Status Orientation: Person, Place, Situation Affect: Anxious, Constricted Speech: WNL Neuro-vegetative: Appetite Decreased, Sleep Disturbance Mental Status Exam: The patient is awake and alert, sitting on his bed. He is calm and cooperative. The patient is oriented to person, place, day, month, year, and reason for admission. He denies current visual hallucinations, but reports they were present yesterday, "the light under the door was messing with me." He denies auditory or tactile hallucinations, and presents no rita delusions. He reports his mood as okay. He scales his depressive feelings now as 9/10, endorsing hopelessness but not helplessness, worthlessness. He endorses guilt feelings. He reports his level of anxiety is 10/10. In both cases 10/10 is the worst. The patient denies suicidal or homicidal ideation, and denies any history of suicide attempts. He denies hospitalization for psychiatric reasons. He denies any psychiatric diagnoses her history, but states that he was trialed on Prozac 20 mg for one month, which did not have any effect. Lab Results: Laboratory Tests 08/18 0720 Chemistry Sodium (137 - 145 mmol/L) 141 Potassium (3.5 - 5.1 mmol/L) 4.6 Chloride (98 - 107 mmol/L) 101 Carbon Dioxide (22 - 30 mmol/L) 27 Anion Gap (5 - 16) 13 BUN (9 - 20 mg/dL) 15 Creatinine (0.7 - 1.2 mg/dL) 0.9 Estimated GFR (>60 ml/min) > 60 BUN/Creatinine Ratio (7 - 25 %) 16.7 Magnesium (1.6 - 2.3 mg/dL) 2.0 Hematology CBC w Diff NO MAN DIFF REQ WBC (4.8 - 10.8 /CUMM) 6.2 RBC (4.70 - 6.10 /CUMM) 4.60 L Hgb (14.0 - 18.0 G/DL) 13.5 L Hct (42 - 52 %) 40.9 L MCV (80.0 - 94.0 FL) 88.8 MCH (27.0 - 31.0 PG) 29.4 MCHC (33.0 - 37.0 G/DL) 33.1 RDW (11.5 - 14.5 %) 13.4 Plt Count (130 - 400 /CUMM) 260 MPV (7.4 - 10.4 FL) 8.4 Gran % (42.2 - 75.2 %) 49.5 Lymphocytes % (20.5 - 51.1 %) 38.6 Monocytes % (1.7 - 9.3 %) 7.9 Eosinophils % (0 - 5 %) 3.4 Basophils % (0.0 - 2.0 %) 0.6 Absolute Granulocytes (1.4 - 6.5 /CUMM) 3.1 Absolute Lymphocytes (1.2 - 3.4 /CUMM) 2.4 Absolute Monocytes (0.10 - 0.60 /CUMM) 0.5 Absolute Eosinophils (0.0 - 0.7 /CUMM) 0.2 Absolute Basophils (0.0 - 0.2 /CUMM) 0 Diffential Diagnosis: F 32.9 depressive disorder, unspecified Alcohol use disorder, recurrent, severe Opiate use disorder, severe Benzodiazepine use disorder Cocaine use disorder Rule out substance-induced mood disorder Impression: The patient was admitted to the hospital for alcohol, benzodiazepine and opiate withdrawal management. He is hoping to get into a long-term rehabilitation program, and states today that [facility] has offered him a bed, pending submission of paperwork, which he is working on this morning. He has had some success with sobriety and he was on a methadone maintenance program for 4 years, which he stopped when he moved to [place], and started drinking alcohol. He had also had 3 months of sobriety, with a relapse 4 months ago. He is interested in entering a Suboxone treatment program. The patient has a subpoena from a [place] Court, served within the last 2 days, which should not affect his current treatment, but is a source of concern and anxiety for the patient. He is currently homeless. His mother lives in [place], his father in [place], and he reports that he is family in [facility]. He is single, but has a 5-year-old male child in [place], who he is motivated to see again. The patient is not sleeping, but he is retaining his nicotine patch, 14 mcg at night. The patch should be removed at night, and since the melatonin 3 mg has not been effective, please consider John REM, or, preferably, Ambien at bedtime. He is unable to tolerate trazodone, nor Seroquel, due to a side effect of restless legs. Clonidine had been held due to hypotension, but he is feeling he could benefit from it is latest vital signs at 0800 today were 106/80, 60, 20 RR, 98.0, zero pain, 95% on room air. He is unable to eat, and has not eaten since he has been in the hospital, due to vomiting and diarrhea. The patient has the opiate detox protocol ordered, including baclofen, Bentyl and clonidine, but may need something for the nausea. He is asking about naltrexone therapy, which we hesitate to start in the hospital, without assured follow-up. He verbalizes understanding of the risks and benefits of this medication, including the possibility of due to respiratory depression if opiates or use along with it. The patient has had lorazepam 18 mg scheduled (lorazepam 2 mg every 4 hours by mouth) in the last 24 hours, and 3 mg PRN, for total of 21 mg in the last 24 hours. The new target for daily lorazepam would be 21 less 20%, which equals 16.8 mg, rounded to 17 mg/24 hours. The patient's CIWA scores for the 24 hours preceding 08/20/2017 at 0800, were [id number] -0. VS, as above. Therefore, we suggest the patient should receive lorazepam 17 mg in the next 24 hours, 13 mg in the subsequent 24 hours, followed by 9 mg, then 5 mg, then 1 mg, then stop. He has a history of The closest approximation to 17 mg/24 hours, would be lorazepam 2.5 mg PO q 4 hours, for a total of 15 mg. Please retain the PRN lorazepam dosing, but go lightly on this, if possible. Provisional Treatment Plan: 1. I have restarted thiamine 100 mg by mouth daily, as well as folic acid 1 mg by mouth daily. This should continue as long as the patient is in the hospital. 2. Please order Ambien 5-10 mg PO at bedtime for insomnia. The patient is requesting this medication. 3. I have ordered new regimen for scheduled lorazepam as 2.5 mg PO q 4 hours, to be reviewed on 08/21/17 for further taper. 4. Continue as needed lorazepam, per CIWA. 5. Please treat for vomiting and diarrhea, so the patient can resume eating. 6. Social work is following. The patient is arranging admission to [facility]. We will continue to follow along with you. Thank you for this consult.
--- NOTE | 2017-08-20 12:34 | Event Note ---
Event Note Event Note: per the nurse in charge the patient appeared more drowsy. He was recently visited by his friend. Not sure if any illicit drug was given to him. We will do a toxicology of his urine.
[2017-08-21] VITALS (10 sets, daily range): BP systolic 94–140; BP diastolic 58–82
--- NOTE | 2017-08-21 07:48 | PN- Housestaff ---
Irvin MOSELEY,Em 08/21/17 0748: Subjective Follow-up For: Alcohol withdrawal Complaints: no complaints Subjective: Patient seen and examined at bedside no overnight events. No complaints. He says he feels fine, better than yesterday. He denies anxiety, depression, suicidal ideation, chest pain, shortness of breath, diarrhea, abdominal pain. Review of Systems Constitutional: Reports: see HPI. Objective Last 24 Hrs of Vital Signs/I&O Vital Signs Date Time Temp Pulse Resp B/P B/P Pulse O2 O2 Flow FiO2 Mean Ox Delivery Rate 08/21 1512 98.1 83 20 140/82 96 Room Air 08/21 1418 97.9 81 20 128/80 100 Room Air 08/21 1000 98.2 58 18 108/60 08/21 0933 58 108/60 08/21 0800 97.5 52 20 98/64 08/21 0726 97.5 52 20 98/64 98 Room Air 08/21 0143 98.5 81 20 100/58 98 Room Air 08/20 2135 94 98/76 08/20 2052 94 98/76 08/20 1800 98.1 80 20 90/60 08/20 1639 64 89/60 08/20 1600 97.7 64 20 89/60 Intake & Output 08/21 1600 08/21 0800 08/21 0000 Intake Total 700 Output Total Balance 700 Intake, IV 20 Intake, Oral 680 Number 0 Bowel Movements Patient 160 lb Weight Physical Exam General Appearance: Alert, Oriented X3, Cooperative, No Acute Distress Cardiovascular: Regular Rate, Normal S1, Normal S2, No Murmurs Lungs: Normal Air Movement Abdomen: Soft, No Tenderness, No Hepatospenomegaly Neurological: Strength at 5/5 X4 Ext, Normal Tone, Sensation Intact Extremities: No Cyanosis, No Edema, Normal Pulses Current Medications: Current Medications Sig/Yulisa Start time Last Medication Dose Route Stop Time Status Admin Baclofen 10 MG Q6 PRN 08/18 0800 AC 08/19 PO 2216 Clonidine 0.1 MG TID 08/17 1000 AC 08/21 PO 0933 Dicyclomine HCl 20 MG Q6 PRN 08/18 0800 AC 08/19 PO 1522 Enoxaparin Sodium 40 MG DAILY 08/18 1000 AC SC Folic Acid 1 MG DAILY 08/20 1002 AC 08/21 PO 0933 Gabapentin 300 MG AT BEDTIME 08/21 2200 AC PO Gabapentin 300 MG Q8H 08/17 1630 AC 08/21 PO 0933 Hydroxyzine HCl 50 MG AT BEDTIME NEED.. 08/21 1415 AC PO Hydroxyzine HCl 50 MG Q6 PRN 08/18 0800 AC 08/19 PO 2216 Lorazepam 0.5 MG Q6 08/25 1800 AC PO 08/26 1201 Lorazepam 1 MG Q6 08/24 1800 AC PO 08/25 1201 Lorazepam 1.5 MG Q6 08/23 1800 AC PO 08/24 1201 Lorazepam 2 MG Q6 08/22 1800 AC PO 08/23 1201 Lorazepam 3 MG Q6 08/21 1800 AC PO 08/22 1201 Lorazepam 2 MG ONCE ONE 08/21 1400 DC 08/21 PO 08/21 1401 1401 Lorazepam 2.5 MG Q4 08/20 1400 DC 08/21 PO 0934 Lorazepam 1 MG Q2P PRN 08/17 1245 AC 08/21 IV 1243 Multivitamins 1 TAB DAILY 08/17 1246 AC 08/21 PO 0933 Nicotine 14 MG DAILY 08/18 0800 AC 08/21 TOP 0933 Ondansetron HCl 4 MG Q6P PRN 08/17 1315 AC 08/19 IV 1029 Patient Medication 1 ED ONE ONE 08/21 1500 DC Teaching ED 08/21 1501 Thiamine HCl 100 MG DAILY 08/20 1002 AC 08/21 PO 0933 Zolpidem Tartrate 5 MG AT BEDTIME 08/20 2200 AC 08/20 PO 2102 Last 24 Hrs of Lab/Jaguar Results Last 24 Hrs of Labs/Mics: Laboratory Tests 08/21/17 0820: Anion Gap 12, Estimated GFR > 60, BUN/Creatinine Ratio 9.0, HCV RNA (PCR) IUs/ml Pending, HCV RNA PCR log IUs/ml Pending Assessment/Plan Assessment: This is a 32 yo gentleman active smoker (1 pack/d) with significant PMH of alcohol abuse with a questionable etoh withdrawal seizure, hepatitis c with negative viral load, 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 Assessment and plan: Alcohol detox/opioid withdrawal: -Patient is on IV lorazepam when necessary and by mouth lorazepam 2 mg every 6. His ciwa score is 9 and vitals are stable. We will follow the CIWA protocal and will give him IV lorazepam according to CIWA score as per psychiatry. -Patient was seen by psychiatry who suggested to add Bentyl, Atarax for anxiety, baclofen, clonidine, ibuprofen to help with this opioid withdrawal during last admission. Psychiatry followed him who suggested tapering off his Ativan 4 mg daily until Thursday. Orders are written.- - Patient was also started on fluoxetine for his anxiety. Ambien was discontinued because it was a closed his way to a benzodiazepine. Patient is counseled enough by me and psychiatry that if he leaves AGAINST MEDICAL ADVICE this time he would be at risk for seizure and possibly . -High dose thiamine with vitamin B12 and folic acid. -Omeprazole 40 mg daily. Zofran IV as needed. -Seizure precautions -Aspiration precautions -Regular diet. -Replace electrolytes as needed. -Patient is homeless and mental health social worker is involved in the care. Patient has a bed available At [facility] on Thursday. DVT prophylaxis: Mechanical and Lovenox subcutaneous. PPD- TO BE READ TOMOR Problem List: 1. Polysubstance dependence including opioid type drug with complication, episodic abuse 2. Alcohol dependency Pain Ratin Pain Location: NONE Pain Goal: Remain pain free Pain Plan: TYLENOL Tomorrow's Labs & Rationales: CBC,BEP JudithOmid mcfadden 08/21/17 1118: Attending MD Review Statement Attending Statement Attending MD Statement: examined this patient, discuss w/resident/PA/SUPPLY CHAIN PLANNER, agreed w/resident/PA/SUPPLY CHAIN PLANNER, discussed with family, reviewed EMR data (avail), discussed with nursing, discussed with case mgmt, reviewed images, amended to note Attending Assessment/Plan: Patient admitted to medicine floor. No new complaints. (had visitor yhesterday and became more lethargic as per nursing) Continue Ativan per CIWA protocol. Contniue multivitamin, folate and thiamine. Social work and psychiatry consult f/u. Continue gabapentin. Monitor CIWA and hemodynamics. DVT prophylaxis: Lovenox. Full code.
--- NOTE | 2017-08-21 12:34 | PN- Psychiatry ---
Assessment/Plan Impression: Patient seen at 1145 today. He verbalizes understanding that he will not be given lorazepam or other benzo if he leaves AMA, and that he would be at risk for seizure and possibly . He indicates that he will not leave AMA, and hopes to be at [facility] rehab next week. He is anxious about his pending court case in [place], and understands that his attempt to seek help for his drug and alcohol use may be looked upon favorably by the court. He understands that we will continue to taper his lorazepam, at approx. 4 mg/24 hours. He would like to use less of the PRN lorazepam. Lorazepam scheduled 15 mg and PRN 5 mg, for a 24 hour total of 20 mg, compared to 21 mg yesterday. I will change the scheduled dosing from 2.5 mg q 4 hours (15 mg/24 hours) to 3 mg q 6 hours (12 mg), with a taper schedule ordered through 08/26/17 1200, when it will finish. VS 08/21/17 @ 1000: 108/60, 58, 98.2, 18RR, 98% RA and pain 0 CIWA 08/21/17 @ 1149: 4-6-0-0-5-5-7-8-6-9-34-7-10-7-0 Shows improvement since yesterday. The patient is anticipating a bed opening at [facility]. He had requested, and we had discussed, the possibility of a methadone taper, however, the patient has been in the hospital since 08/17/2017, and it is likely that any symptoms of opiate withdrawal have resolved. After discussion with Rigo Loza MD, chair psychiatry, we've decided we do not want to continue with the Ambien, started yesterday, as this is a close derivative of benzodiazepine, and not indicated with patients with substance abuse problem. As previously mentioned, he cannot tolerate trazodone or Seroquel for sleep, due to restless legs. We have added a dose of gabapentin at bedtime, as needed, as well as an additional dose of hydroxyzine at bedtime. Hydroxyzine is a QTC prolonging agents, and EKG should be monitored, and this medication held for QTC greater than 475 ms. The patient also asked about the possibility of starting another benzodiazepine, Valium, which we do not use for detox tapers. This would be contraindicated, as any other benzodiazepine other than lorazepam would be, due to the patient's history of untreated hepatitis C. The patient reports that his nausea and vomiting and diarrhea have resolved, and he was able to eat for sandwiches last night. He has previously tolerated Prozac, which had not been titrated to an effective dose. This medication can sometimes cause a worsening of anxiety. If this occurs, stopped the medication and consider alternatives, which are mentioned below, sertraline/Zoloft, or escitalopram/Lexapro. Suggestion: 1. I have continued the taper for alcohol and benzo protocol: lorazepam 3 mg PO q 6 hours X 4 doses, then lorazepam 2 mg PO q 6 hours X 4 doses, then lorazepam 1.5 mg PO q 6 hours X 4 doses, then lorazepam 1 mg PO q 6 hours X 4 doses, then lorazepam 0.5 mg PO q 6 hours, then STOP. Hold for oversedation or respiratory depression. 2. Continue lorazepam q 1 hour PRN per CARLOSWA, but please be as conservative as good nursing and medical judgement dictates. 3. Continue gabapentin 300 mg PO q 8 hours. 4. I have started gabapentin 300 mg PO at bedtime. 5. I have added hydroxyzine 50 mg PO at bedtime, as needed for insomnia. Hold for oversedation or respiratory depression. Hold for QTc prolongation greater then 475 mS. 6. Continue hydroxyzine 50 mg PO q 6 hours as needed for anxiety. May be increased to 100 mg PO q 6 hours, provided EKG is monitored for QTc prolongation , hold for greater than 475 mS. Hold for oversedation or respiratory depression. 7. Psychiatry wishes to discontinue Ambien, which I have done, as it is a benzodiazepine derivative, and not indicated for patients with substance use disorders. The patient cannot take trazodone or quetiapine, but we have increased gabapentin at bedtime, and hydroxyzine, as needed. 8. Continue daily thiamine, vitamins and folic acid. 9. I have started fluoxetine 20 mg PO daily for depression and anxiety. If this causes an increase in anxiety, stop fluoxetine and consider escitalopram 10 mg PO daily or sertraline 50 mg PO daily. 10. Please order an EKG, and monitor and replete potassium and magnesium to the upper portion of the normal range. We will revisit the patient on 08/24/17. Subjective Subjective: The patient is alert, anxious, sitting on his bed, and is cooperative. He is oriented to person, place, day, month, year, and reason for admission. He denies auditory or visual hallucinations, and presents no rita delusions. He denies suicidal or homicidal ideation. His mood is anxious with congruent affect. He reports fairly good sleep last night with Ambien 5 mg, requesting at that it be increased to 10 mg. Review of Systems Neurological/Psychological: Reports: anxiety, depressed. Objective Last 24 Hrs of Vital Signs/I&O Vital Signs Date Time Temp Pulse Resp B/P B/P Pulse O2 O2 Flow FiO2 Mean Ox Delivery Rate 08/21 1418 97.9 81 20 128/80 100 Room Air 08/21 1000 98.2 58 18 108/60 08/21 0933 58 108/60 08/21 0800 97.5 52 20 98/64 08/21 0726 97.5 52 20 98/64 98 Room Air 08/21 0143 98.5 81 20 100/58 98 Room Air 08/20 2135 94 98/76 08/20 2052 94 98/76 08/20 1800 98.1 80 20 90/60 08/20 1639 64 89/60 08/20 1600 97.7 64 20 89/60 08/20 1441 97.6 85 20 88/64 97 Room Air Physical Exam: Not performed Physical Exam General Appearance: alert, awake, anxious Neurologic/Psychiatric: awake, alert, oriented x 3, normal gait Current Medications: Current Medications Sig/Yulisa Start time Last Medication Dose Route Stop Time Status Admin Baclofen 10 MG Q6 PRN 08/18 0800 AC 08/19 PO 2216 Clonidine 0.1 MG TID 08/17 1000 AC 08/21 PO 0933 Dicyclomine HCl 20 MG Q6 PRN 08/18 0800 AC 08/19 PO 1522 Enoxaparin Sodium 40 MG DAILY 08/18 1000 AC SC Folic Acid 1 MG DAILY 08/20 1002 AC 08/21 PO 0933 Gabapentin 300 MG AT BEDTIME 08/21 2200 AC PO Gabapentin 300 MG Q8H 08/17 1630 AC 08/21 PO 0933 Hydroxyzine HCl 50 MG AT BEDTIME NEED.. 08/21 1415 UNVr PO Hydroxyzine HCl 50 MG Q6 PRN 08/18 0800 AC 08/19 PO 2216 Lorazepam 0.5 MG Q6 08/25 1800 AC PO 08/26 1201 Lorazepam 1 MG Q6 08/24 1800 AC PO 08/25 1201 Lorazepam 1.5 MG Q6 08/23 1800 AC PO 08/24 1201 Lorazepam 2 MG Q6 08/22 1800 AC PO 08/23 1201 Lorazepam 3 MG Q6 08/21 1800 AC PO 08/22 1201 Lorazepam 2 MG ONCE ONE 08/21 1400 DC 08/21 PO 08/21 1401 1401 Lorazepam 2.5 MG Q4 08/20 1400 DC 08/21 PO 0934 Lorazepam 1 MG Q2P PRN 08/17 1245 AC 08/21 IV 1243 Multivitamins 1 TAB DAILY 08/17 1246 AC 08/21 PO 0933 Nicotine 14 MG DAILY 08/18 0800 AC 08/21 TOP 0933 Ondansetron HCl 4 MG Q6P PRN 08/17 1315 AC 08/19 IV 1029 Thiamine HCl 100 MG DAILY 08/20 1002 AC 08/21 PO 0933 Zolpidem Tartrate 5 MG AT BEDTIME 08/20 2200 AC 08/20 PO 2102 Results Last 24 Hrs of Labs/Mics: Laboratory Tests 08/21 0820 Chemistry Sodium (137 - 145 mmol/L) 141 Potassium (3.5 - 5.1 mmol/L) 4.2 Chloride (98 - 107 mmol/L) 102 Carbon Dioxide (22 - 30 mmol/L) 27 Anion Gap (5 - 16) 12 BUN (9 - 20 mg/dL) 9 Creatinine (0.7 - 1.2 mg/dL) 1.0 Estimated GFR (>60 ml/min) > 60 BUN/Creatinine Ratio (7 - 25 %) 9.0 Serology HCV RNA (PCR) IUs/ml Pending HCV RNA PCR log IUs/ml Pending
--- NOTE | 2017-08-21 18:42 | Incdntl Nt Psy ---
Incidental Note Notation: 1730: The patient reported that he was having visual hallucinations, seeing people outside his window. Although it is unusual for hallucinosis appear late in the alcohol detox process, we will start a small, oral dose of haloperidol, as needed. This should be held for hypomagnesemia, hypokalemia, QTc greater than 475 mS, oversedation or respiratory depression. Also, the patient is concerned that fluoxetine may exacerbate his anxiety, and would like to start sertraline, instead. I have ordered that to start on 08/22/17 AM. If he does not tolerate this, consider escitalopram. Please note that sertraline 50 mg was started this date on the discharge summary, so that it can be reviewed for titration, as appropriate. Note: SSRIs can prolong QTc and can cause or worsen hyponatremia. EKG 08/21/17 @ 1533: 80 bpm, sinus rhythm, QTc 406 mS. Potassium 4.2 on 08/21/17 Magnesium 2.0 on 08/18/17 Please recheck EKG and electrolytes after initiation of these medications. R/B/SE for haloperidol and sertraline reviewed with the patient, who verbalizes understanding. Please call miniature set constructor psychiatry over the weekend, if there are questions. X. [phone] or X. [phone] We will revisit the patient otherwise on 08/24/17.
[2017-08-22 06:00] VITALS: BP 97/63
[2017-08-22 07:30] VITALS: BP 97/63
--- NOTE | 2017-08-22 08:29 | PN- Housestaff ---
See Addendum Subjective Follow-up For: Alcohol withdrawal Subjective: Patient reports he feel nauseated and lightheaded. He denies vomiting, abdominal pain Review of Systems Constitutional: Reports: see HPI. Objective Last 24 Hrs of Vital Signs/I&O Vital Signs Date Time Temp Pulse Resp B/P B/P Pulse O2 O2 Flow FiO2 Mean Ox Delivery Rate 08/22 0730 97.7 68 18 97/63 100 Room Air 08/22 0600 97.7 68 18 97/63 08/21 2347 99.1 110 20 117/70 08/21 2306 99.1 110 20 117/70 100 Room Air 08/21 2111 72 100/65 08/21 2100 98.0 72 20 100/65 08/21 1650 70 94/64 08/21 1643 70 94/64 08/21 1643 70 94/64 08/21 1512 98.1 83 20 140/82 96 Room Air 08/21 1418 97.9 81 20 128/80 100 Room Air 08/21 1000 98.2 58 18 108/60 08/21 0933 58 108/60 Intake & Output 08/22 1600 08/22 0800 08/22 0000 Intake Total 210 2021 Output Total 1800 Balance 210 221 Intake, IV 10 21 Intake, Oral 200 2000 Number 0 Bowel Movements Output, Urine 1800 Physical Exam General Appearance: Alert, Oriented X3, Cooperative Cardiovascular: Regular Rate, Normal S1, Normal S2 Lungs: Clear to Auscultation, Normal Air Movement Abdomen: Normal Bowel Sounds, Soft, No Tenderness Current Medications: Current Medications Sig/Yulisa Start time Last Medication Dose Route Stop Time Status Admin Baclofen 10 MG Q6 PRN 08/18 0800 AC 08/19 PO 2216 Clonidine 0.1 MG TID 08/17 1000 AC 08/21 PO 2111 Dicyclomine HCl 20 MG Q6 PRN 08/18 0800 AC 08/19 PO 1522 Enoxaparin Sodium 40 MG DAILY 08/18 1000 AC SC Fluoxetine HCl 20 MG DAILY 08/22 1000 CAN PO Folic Acid 1 MG DAILY 08/20 1002 AC 08/21 PO 0933 Gabapentin 300 MG AT BEDTIME 08/21 2200 AC 08/21 PO 2111 Gabapentin 300 MG Q8H 08/17 1630 AC 08/22 PO 0054 Haloperidol 0.5 MG Q6-PRN PRN 08/21 1845 AC 08/21 PO 2358 Hydroxyzine HCl 50 MG AT BEDTIME NEED.. 08/21 1415 AC PO Hydroxyzine HCl 50 MG Q6 PRN 08/18 0800 AC 08/19 PO 2216 Lorazepam 0.5 MG Q6 08/25 1800 AC PO 08/26 1201 Lorazepam 1 MG Q6 08/24 1800 AC PO 08/25 1201 Lorazepam 1.5 MG Q6 08/23 1800 AC PO 08/24 1201 Lorazepam 2 MG Q6 08/22 1800 AC PO 08/23 1201 Lorazepam 3 MG Q6 08/21 1800 AC 08/22 PO 08/22 1201 0628 Lorazepam 2 MG ONCE ONE 08/21 1400 DC 08/21 PO 08/21 1401 1401 Lorazepam 2.5 MG Q4 08/20 1400 DC 08/21 PO 0934 Lorazepam 1 MG Q2P PRN 08/17 1245 AC 08/21 IV 2358 Multivitamins 1 TAB DAILY 08/17 1246 AC 08/21 PO 0933 Nicotine 14 MG DAILY 08/18 0800 AC 08/21 TOP 0933 Ondansetron HCl 4 MG Q6P PRN 08/17 1315 AC 08/19 IV 1029 Patient Medication 1 ED ONE ONE 08/21 1500 DC Teaching ED 08/21 1501 Sertraline HCl 50 MG DAILY 08/22 1000 AC PO Thiamine HCl 100 MG DAILY 08/20 1002 AC 08/21 PO 0933 Zolpidem Tartrate 5 MG AT BEDTIME 08/20 2200 DC 08/20 PO 2102 Last 24 Hrs of Lab/Jaguar Results Last 24 Hrs of Labs/Mics: Laboratory Tests 08/22/17 0622: Sodium Pending, Potassium Pending, Chloride Pending, Carbon Dioxide Pending, Anion Gap Pending, BUN Pending, Creatinine Pending, BUN/Creatinine Ratio Pending Assessment/Plan Assessment: Mr. 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 Problem list: Alcohol withdrawal Hypotension Plan: Continue Omeprazole, thiamine with vitamin B12 and folic acid Vitals q shift for hypotension Ativan per CIWA protocol Seizure precautions Aspiration precautions Bed available at [facility] on Thursday Psych recommendations appreciated Problem List: 1. Acute opioid withdrawal 2. Alcohol withdrawal 3. Alcohol dependency 4. Polysubstance dependence including opioid type drug with complication, episodic abuse Pain Ratin Pain Location: NA Pain Goal: Remain pain free Pain Plan: NA Tomorrow's Labs & Rationales: none
[2017-08-22 15:26] VITALS: BP 110/60
[2017-08-23 07:01] VITALS: BP 91/53
--- NOTE | 2017-08-23 08:28 | PN- Housestaff ---
Irvin MOSELEY,Em 08/23/17 0827: Subjective Follow-up For: Alcohol detox, polysubstance abuse Subjective: Patient seen and examined at bedside. No overnight events. He denies chest pain, shortness of breath, nausea, vomiting, tremors, visual/auditory hallucination, suicidal ideation. He said he is "depressed"about the whole thing Review of Systems Constitutional: Reports: see HPI. Objective Last 24 Hrs of Vital Signs/I&O Vital Signs Date Time Temp Pulse Resp B/P B/P Pulse O2 O2 Flow FiO2 Mean Ox Delivery Rate 08/23 1003 68 108/78 08/23 0701 98.0 70 18 91/53 99 Room Air 08/22 1611 70 110/60 08/22 1526 97.7 65 20 110/60 98 Room Air Intake & Output 08/23 1600 08/23 0800 08/23 0000 Intake Total 480 760 Output Total Balance 480 760 Intake, IV 0 30 Intake, Oral 480 730 Number 0 0 Bowel Movements Physical Exam General Appearance: Alert, Oriented X3, Cooperative, No Acute Distress Cardiovascular: Regular Rate, Normal S1, Normal S2, No Murmurs Lungs: Clear to Auscultation Abdomen: Soft, No Tenderness, No Hepatospenomegaly Neurological: Normal Speech, Strength at 5/5 X4 Ext, Normal Tone, Sensation Intact Extremities: No Cyanosis, No Edema, Normal Pulses Current Medications: Current Medications Sig/Yulisa Start time Last Medication Dose Route Stop Time Status Admin Baclofen 10 MG Q6 PRN 08/18 0800 AC 08/22 PO 1935 Clonidine 0.1 MG TID 08/17 1000 AC 08/23 PO 1003 Dicyclomine HCl 20 MG Q6 PRN 08/18 0800 AC 08/19 PO 1522 Enoxaparin Sodium 40 MG DAILY 08/18 1000 AC SC Folic Acid 1 MG DAILY 08/20 1002 AC 08/23 PO 1003 Gabapentin 300 MG AT BEDTIME 08/21 2200 AC 08/22 PO 212 Gabapentin 300 MG Q8H 08/17 1630 AC 08/23 PO 1003 Haloperidol 0.5 MG .STK-MED ONE 08/22 2025 DC PO 08/22 2026 Haloperidol 0.5 MG Q6-PRN PRN 08/21 1845 AC 08/22 PO 2026 Hydroxyzine HCl 50 MG AT BEDTIME NEED.. 08/21 1415 AC PO Hydroxyzine HCl 50 MG Q6 PRN 08/18 0800 AC 08/22 PO 1936 Lorazepam 0.5 MG Q6 08/25 1800 AC PO 08/26 1201 Lorazepam 1 MG Q6 08/24 1800 AC PO 08/25 1201 Lorazepam 1.5 MG Q6 08/23 1800 AC PO 08/24 1201 Lorazepam 2 MG Q6 08/22 1800 DC 08/23 PO 08/23 1201 1204 Lorazepam 1 MG Q2P PRN 08/17 1245 AC 08/23 IV 1003 Multivitamins 1 TAB DAILY 08/17 1246 AC 08/23 PO 1003 Nicotine 14 MG DAILY 08/18 0800 AC 08/21 TOP 0933 Ondansetron HCl 4 MG Q6P PRN 08/17 1315 AC 08/22 IV 1029 Sertraline HCl 50 MG DAILY 08/22 1000 AC 08/23 PO 1003 Thiamine HCl 100 MG DAILY 08/20 1002 AC 08/23 PO 1003 Assessment/Plan Assessment: This is a 32 yo gentleman active smoker (1 pack/d) with significant PMH of alcohol abuse with a questionable etoh withdrawal seizure, hepatitis c with negative viral load, 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 Assessment and plan: Alcohol detox/opioid withdrawal: -Patient is on IV lorazepam when necessary and by mouth lorazepam 1.5 mg every 6. His ciwa score is 0 in last 24 hours. And vitals are stable. We will follow the CIWA protocal and will give him IV lorazepam according to CIWA score as per psychiatry. -Patient was seen by psychiatry who suggested to add Bentyl, Atarax for anxiety, baclofen, clonidine, ibuprofen to help with this opioid withdrawal during last admission. Patient was also started on fluoxetine for his anxiety. Patient is counseled enough by me and psychiatry that if he leaves AGAINST MEDICAL ADVICE this time he would be at risk for seizure and possibly . -High dose thiamine with vitamin B12 and folic acid. -Omeprazole 40 mg daily. Zofran IV as needed. -Seizure precautions -Aspiration precautions -Regular diet. -Replace electrolytes as needed. -Patient is homeless and social work lecturer is involved in the care. Patient has a bed available At [facility] on Thursday. DVT prophylaxis: Mechanical and Lovenox subcutaneous. Problem List: 1. Alcohol withdrawal 2. Polysubstance dependence including opioid type drug with complication, episodic abuse Pain Ratin Pain Location: NONE Pain Goal: Remain pain free Pain Plan: TYLENOL Tomorrow's Labs & Rationales: NONE Savita Mendoza MD 08/23/17 1301: Attending MD Review Statement Attending Statement Attending MD Statement: examined this patient, discuss w/resident/PA/HISTOLOGIST, agreed w/resident/PA/HISTOLOGIST, discussed with family, reviewed EMR data (avail), discussed with nursing, reviewed images, amended to note Attending Assessment/Plan: Patient seen and examined, overall doing well. CIWA scores are running low but patient claims that he has no appetite. Vital signs are stable. Patient on Ativan taper. We'll complete the Ativan taper and then will be discharged long- term residential rehabilitation. Continue the rest of the management.
[2017-08-23 14:23] VITALS: BP 110/60
[2017-08-23 21:37] VITALS: BP 100/58
[2017-08-24 02:14] VITALS: BP 104/60
[2017-08-24 05:43] VITALS: BP 114/60
--- NOTE | 2017-08-24 07:35 | PN- Housestaff ---
Irvin MOSELEY,Em 08/24/17 0735: Subjective Follow-up For: Alcohol detox and polysubstance abuse Complaints: no complaints Subjective: Patient seen and examined at bedside. No overnight events. He denies chest pain, abdominal pain, hallucination, suicidal ideation. He says he is motivated to go to [facility] tomorrow. Review of Systems Constitutional: Reports: see HPI. Objective Last 24 Hrs of Vital Signs/I&O Vital Signs Date Time Temp Pulse Resp B/P B/P Pulse O2 O2 Flow FiO2 Mean Ox Delivery Rate 08/24 1100 72 18 110/62 98 08/24 1007 72 110/62 08/24 1000 72 18 110/62 08/24 0543 98.4 82 20 114/60 97 Room Air 08/24 0214 98.4 98 22 104/60 98 Room Air 08/23 2140 100/58 08/23 2137 98.9 89 16 100/58 95 Room Air 08/23 1423 97.9 94 20 110/60 96 Room Air Physical Exam General Appearance: Alert, Oriented X3, Cooperative, No Acute Distress Cardiovascular: Regular Rate, Normal S1, Normal S2, No Murmurs Lungs: Normal Air Movement Abdomen: Soft, No Tenderness, No Hepatospenomegaly Neurological: Strength at 5/5 X4 Ext, Normal Tone, Sensation Intact Extremities: No Cyanosis, No Edema, Normal Pulses Current Medications: Current Medications Sig/Yulisa Start time Last Medication Dose Route Stop Time Status Admin Acetaminophen 325 MG ONCE ONE 08/24 1200 DC 08/24 PO 08/24 1201 1213 Baclofen 10 MG Q6 PRN 08/18 0800 AC 08/22 PO 1935 Clonidine 0.1 MG TID 08/17 1000 AC 08/24 PO 1007 Dicyclomine HCl 20 MG Q6 PRN 08/18 0800 AC 08/19 PO 1522 Enoxaparin Sodium 40 MG DAILY 08/18 1000 AC SC Folic Acid 1 MG DAILY 08/20 1002 AC 08/24 PO 1007 Gabapentin 300 MG AT BEDTIME 08/21 2200 AC 08/23 PO 2139 Gabapentin 300 MG Q8H 08/17 1630 AC 08/24 PO 0818 Haloperidol 0.5 MG Q6-PRN PRN 08/21 1845 AC 08/22 PO 2027 Hydroxyzine HCl 50 MG AT BEDTIME NEED.. 08/21 1415 AC PO Hydroxyzine HCl 50 MG Q6 PRN 08/18 0800 AC 08/22 PO 1936 Lorazepam 0.5 MG Q6 08/25 1800 AC PO 08/26 1201 Lorazepam 1 MG Q6 08/24 1800 AC PO 08/25 1201 Lorazepam 1.5 MG Q6 08/23 1800 DC 08/24 PO 08/24 1201 1120 Lorazepam 1 MG Q2P PRN 08/17 1245 AC 08/24 IV 0818 Multivitamins 1 TAB DAILY 08/17 1246 AC 08/24 PO 1007 Nicotine 14 MG DAILY 08/18 0800 AC 08/24 TOP 1007 Ondansetron HCl 4 MG Q6P PRN 08/17 1315 AC 08/22 IV 1029 Sertraline HCl 50 MG DAILY 08/22 1000 AC 08/24 PO 1007 Thiamine HCl 100 MG DAILY 08/20 1002 AC 08/24 PO 1007 Assessment/Plan Assessment: This is a 32 yo gentleman active smoker (1 pack/d) with significant PMH of alcohol abuse with a questionable etoh withdrawal seizure, hepatitis c with negative viral load, 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 Assessment and plan: Alcohol detox/opioid withdrawal: -Patient is on by mouth lorazepam 1 mg every 6. His ciwa score is 10 in last 24 hours. And vitals are stable. We will follow the CIWA protocal and will give him IV lorazepam according to CIWA score as per psychiatry. -Patient was seen by psychiatry who suggested to add Bentyl, Atarax for anxiety, baclofen, clonidine, ibuprofen to help with this opioid withdrawal during last admission. Patient was also started on fluoxetine for his anxiety. Patient is counseled enough by me and psychiatry that if he leaves AGAINST MEDICAL ADVICE this time he would be at risk for seizure and possibly . -High dose thiamine with vitamin B12 and folic acid. -Omeprazole 40 mg daily. Zofran IV as needed. -Seizure precautions -Aspiration precautions -Regular diet. -Replace electrolytes as needed. -Patient is homeless and social research assistant is involved in the care. Patient has a bed available At [facility] on Thursday. Patient's benzodiazepine taper ends on Thursday and he has to be 48 hours after the benzo denies pain taper to be taken by the rehabilitation center. Problem List: 1. Polysubstance dependence including opioid type drug with complication, episodic abuse 2. Alcohol dependency Pain Ratin Pain Location: none Pain Goal: Remain pain free Pain Plan: tylenol Tomorrow's Labs & Rationales: none Omid Wong 08/24/17 1238: Attending MD Review Statement Attending Statement Attending MD Statement: examined this patient, discuss w/resident/PA/GREETING CARD MAKER, agreed w/resident/PA/GREETING CARD MAKER, discussed with family, reviewed EMR data (avail), discussed with nursing, discussed with case mgmt, reviewed images, amended to note Attending Assessment/Plan: Patient seen and examined, overall doing well. CIWA scores 0-4. Vital signs are stable. Patient on Ativan taper. We'll complete the Ativan taper and then will be discharged long-term residential rehabilitation. Continue the rest of the management.
[2017-08-24 10:00] VITALS: BP 110/62
[2017-08-24 11:00] VITALS: BP 110/62
[2017-08-24 20:59] VITALS: BP 111/57
[2017-08-24 22:30] VITALS: BP 82/42
--- NOTE | 2017-08-24 23:31 | Event Note ---
Event Note Event Note: I was paged that patient blood pressure is 82/42 although patient is asymptomatic. Patient was given 1 bolus of 500 mL normal saline. We will check the blood pressure again. Later on his blood pressure was checked that was 101/ 60. Patient was noted to have left arm erythema and induration most likely from his IV. Patient was seen and examined. Ibuprofen,cold compressors and instructions to elevate the arm were offered. We will do left upper extremity ultrasound to rule out superficial thrombophlebitis or DVT.
[2017-08-25 01:18] VITALS: BP 101/60
--- NOTE | 2017-08-25 07:15 | PN- Housestaff ---
Irvin MOSELEY,Em 08/25/17 0715: Subjective Follow-up For: ALCOHOL ABUSE Complaints: PAIN AND SWELLING LEFT ARM Subjective: Patient seen and examined at bedside. No overnight events. He should complaints of left arm pain, at the place of IV infiltration. Patient was seen by the night resident and nocturnal's who suggested ultrasound Doppler of his left arm. Patient denies hallucination, abdominal pain, nausea, suicidal ideation. Review of Systems Constitutional: Reports: see HPI. Objective Last 24 Hrs of Vital Signs/I&O Vital Signs Date Time Temp Pulse Resp B/P B/P Pulse O2 O2 Flow FiO2 Mean Ox Delivery Rate 08/25 926 68 110/50 08/25 0717 99.2 77 18 110/54 96 08/25 0118 101/60 08/24 2230 98.6 79 20 82/42 97 Room Air 08/24 2106 89 111/57 08/24 2059 99.6 89 18 111/57 08/24 1744 88 120/70 08/24 1100 72 18 110/62 98 Intake & Output 08/25 1600 08/25 0800 08/25 0000 Intake Total 480 480 Output Total Balance 480 480 Intake, Oral 480 480 Output, Urine Physical Exam General Appearance: Alert, Oriented X3, Cooperative, No Acute Distress Cardiovascular: Regular Rate, Normal S1, Normal S2, No Murmurs Lungs: Normal Air Movement Abdomen: Soft, No Tenderness, No Hepatospenomegaly Neurological: Normal Speech, Strength at 5/5 X4 Ext, Normal Tone, Sensation Intact Current Medications: Current Medications Sig/Yulisa Start time Last Medication Dose Route Stop Time Status Admin Acetaminophen 325 MG ONCE ONE 08/24 1200 DC 08/24 PO 08/24 1201 1213 Baclofen 10 MG Q6 PRN 08/18 0800 AC 08/22 PO 1935 Clonidine 0.1 MG TID 08/17 1000 AC 08/25 PO 926 Dicyclomine HCl 20 MG Q6 PRN 08/18 0800 AC 08/19 PO 1522 Enoxaparin Sodium 40 MG DAILY 08/18 1000 AC SC Folic Acid 1 MG DAILY 08/20 1002 AC 08/25 PO 926 Gabapentin 300 MG AT BEDTIME 08/21 2200 AC 08/24 PO 2106 Gabapentin 300 MG Q8H 08/17 1630 AC 08/25 PO 09 Haloperidol 0.5 MG Q6-PRN PRN 08/21 1845 AC 08/22 PO 2027 Hydroxyzine HCl 50 MG AT BEDTIME NEED.. 08/21 1415 AC 08/25 PO 0249 Hydroxyzine HCl 50 MG Q6 PRN 08/18 0800 AC 08/22 PO 1936 Ibuprofen 400 MG ONCE ONE 08/25 0145 DC 08/25 PO 08/25 0146 0250 Lorazepam 0.5 MG Q6 08/25 1800 AC PO 08/26 1201 Lorazepam 1 MG Q6 08/24 1800 AC 08/25 PO 08/25 1201 0605 Lorazepam 1.5 MG Q6 08/23 1800 DC 08/24 PO 08/24 1201 1120 Lorazepam 1 MG Q2P PRN 08/17 1245 AC 08/25 IV 0338 Multivitamins 1 TAB DAILY 08/17 1246 AC 08/25 PO 0927 Nicotine 14 MG DAILY 08/18 0800 AC 08/24 TOP 1007 Ondansetron HCl 4 MG Q6P PRN 08/17 1315 AC 08/22 IV 1029 Sertraline HCl 50 MG DAILY 08/22 1000 AC 08/25 PO 0927 Sodium Chloride 500 ML BOLUS ONE 08/24 2330 DC 08/24 IV 08/25 0029 2349 Thiamine HCl 100 MG DAILY 08/20 1002 AC 08/25 PO 0927 Assessment/Plan Assessment: This is a 32 yo gentleman active smoker (1 pack/d) with significant PMH of alcohol abuse with a questionable etoh withdrawal seizure, hepatitis c with negative viral load, 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 Assessment and plan: Alcohol detox/opioid withdrawal: -Patient is on by mouth lorazepam 1 mg every 6. His ciwa score is 8 in last 24 hours. And vitals are stable. We will follow the CIWA protocal and will give him IV lorazepam according to CIWA score as per psychiatry. -Patient was seen by psychiatry who suggested to add Bentyl, Atarax for anxiety, baclofen, clonidine, ibuprofen to help with this opioid withdrawal during last admission. Patient was also started on fluoxetine for his anxiety. Patient is counseled enough by me and psychiatry that if he leaves AGAINST MEDICAL ADVICE this time he would be at risk for seizure and possibly . -High dose thiamine with vitamin B12 and folic acid. -Omeprazole 40 mg daily. Zofran IV as needed. -Seizure precautions -Aspiration precautions -Regular diet. -Patient has left arm pain and swelling secondary due to IV infiltration. Patient was seen by overnight resident and career orientation teacher. Decided to do ultrasound of his left arm. We will follow-up with the Doppler ultrasound. -Patient is homeless and social worker clinical is involved in the care. Patient has a bed available At [facility] on Thursday. Patient's benzodiazepine taper ends today and he has to be 48 hours after the benzo denies pain taper to be taken by the rehabilitation center. Problem List: 1. Polysubstance dependence including opioid type drug with complication, episodic abuse 2. Alcohol dependency Pain Ratin Pain Location: none Pain Goal: Remain pain free Pain Plan: tylenol Tomorrow's Labs & Rationales: cbc,bep Omid Wong 08/25/17 1123: Attending MD Review Statement Attending Statement Attending MD Statement: examined this patient, discuss w/resident/PA/CLASSROOM AIDE, agreed w/resident/PA/CLASSROOM AIDE, discussed with family, reviewed EMR data (avail), discussed with nursing, discussed with case mgmt, reviewed images, amended to note Attending Assessment/Plan: Patient seen and examined, overall doing well. CIWA scores 0-4. Vital signs are stable. Patient on Ativan taper. We'll complete the Ativan taper and then will be discharged long-term residential rehabilitation. Continue the rest of the management.
[2017-08-25 07:17] VITALS: BP 110/54
--- NOTE | 2017-08-25 09:08 | PN- Psychiatry ---
Assessment/Plan Impression: The patient is nearing the end of his lorazepam detox taper protocol, and reports that [facility] will accept him in a door to door transfer on 08/28/17, if he is free of benzodiazepines for 2 days. He will have his last dose of scheduled lorazepam on 08/26/18 @ 1200. He is c/o poor sleep, and states that he knows he srikanth sleep normally eventually. He cannot tolerate trazodone or quetiapine, and does not find hydroxyzine effective. He may tolerate diphenhydramine for sleep, and states that he has had this before; consider 25 mg, if you deem appropriate. He reports that the medical team is aware of the pain and induration in his left bicep, which he reports is the site of an IV. CIWA as of 08/25/17 @ 0600: 2-6-8-2-9-6-2-6-9-2-4-4-4-10 VS as of 08/25/17 @ 0717" 110/54,77,99.2, 18, 96% RA, pain 3 Lorazepam 4.5 mg scheduled + 2 mg PRN = 6.5 mg in the last 24 hours. Suggestion: 1. Continue lorazepam alcohol detox taper protocol. Please minimize the use of PRN dosing, as he indicates he will need to stop these two days before transfer to his rehab on 08/28/17. 2. At discharge, please continue sertraline, gabapentin, MVI, folic acid allas currently ordered; thiamine 50 mg PO daily. 3. Ask that sertraline 50 mg PO daily, new as of 08/23/17, be evaluated for titration at the rehab. 4. Please minimize interruptions between 10P and 6A, to help promote sleep. Scheduled lorazepam can be given one hour earlier at 2300, if appropriate. 5. Continue daily MVI, folate and thiamine. The latter can be reduced to 50 mg PO daily. We will continue to follow along. Subjective Subjective: A+OX3 Denies AVH, no rita delusions Denies SI or HI Sleep 3 hours, poor. Review of Systems Neurological/Psychological: Reports: anxiety. Objective Last 24 Hrs of Vital Signs/I&O Vital Signs Date Time Temp Pulse Resp B/P B/P Pulse O2 O2 Flow FiO2 Mean Ox Delivery Rate 03/27 0717 99.2 77 18 110/54 96 08/25 0118 101/60 08/24 2230 98.6 79 20 82/42 97 Room Air 08/24 2106 89 111/57 08/24 2059 99.6 89 18 111/57 08/24 1744 88 120/70 08/24 1100 72 18 110/62 98 08/24 1007 72 110/62 08/24 1000 72 18 110/62 Intake & Output 08/25 1600 08/25 0800 08/25 0000 Intake Total 480 480 Output Total Balance 480 480 Intake, Oral 480 480 Output, Urine Physical Exam: Not performed Physical Exam General Appearance: no apparent distress, alert, awake, anxious Extremities: Left bicep induration noted; patient reports pain. Neurologic/Psychiatric: awake, alert, oriented x 3, normal gait Current Medications: Current Medications Sig/Yulisa Start time Last Medication Dose Route Stop Time Status Admin Acetaminophen 325 MG ONCE ONE 08/24 1200 DC 08/24 PO 08/24 1201 1213 Baclofen 10 MG Q6 PRN 08/18 0800 AC 08/22 PO 1935 Clonidine 0.1 MG TID 08/17 1000 AC 08/24 PO 2106 Dicyclomine HCl 20 MG Q6 PRN 08/18 0800 AC 08/19 PO 1522 Enoxaparin Sodium 40 MG DAILY 08/18 1000 AC SC Folic Acid 1 MG DAILY 08/20 1002 AC 08/24 PO 1007 Gabapentin 300 MG AT BEDTIME 08/21 2200 AC 08/24 PO 2106 Gabapentin 300 MG Q8H 08/17 1630 AC 08/24 PO 2348 Haloperidol 0.5 MG Q6-PRN PRN 08/21 1845 AC 08/22 PO 2027 Hydroxyzine HCl 50 MG AT BEDTIME NEED.. 08/21 1415 AC 08/25 PO 0249 Hydroxyzine HCl 50 MG Q6 PRN 08/18 0800 AC 08/22 PO 1936 Ibuprofen 400 MG ONCE ONE 08/25 0145 DC 08/25 PO 08/25 0146 0250 Lorazepam 0.5 MG Q6 08/25 1800 AC PO 08/26 1201 Lorazepam 1 MG Q6 08/24 1800 AC 08/25 PO 08/25 1201 0605 Lorazepam 1.5 MG Q6 08/23 1800 DC 08/24 PO 08/24 1201 1120 Lorazepam 1 MG Q2P PRN 08/17 1245 AC 08/25 IV 0338 Multivitamins 1 TAB DAILY 08/17 1246 AC 08/24 PO 1007 Nicotine 14 MG DAILY 08/18 0800 AC 08/24 TOP 1007 Ondansetron HCl 4 MG Q6P PRN 08/17 1315 AC 08/22 IV 1029 Sertraline HCl 50 MG DAILY 08/22 1000 AC 08/24 PO 1007 Sodium Chloride 500 ML BOLUS ONE 08/24 2330 DC 08/24 IV 08/25 0029 2349 Thiamine HCl 100 MG DAILY 08/20 1002 AC 08/24 PO 1007 Results Last 24 Hrs of Labs/Mics: None
[2017-08-25 15:26] VITALS: BP 122/82
--- NOTE | 2017-08-25 15:30 | ULTRASOUND REPORT ---
EXAMINATION: US TRIPLEX UPPER EXTREMITY, LEFT CLINICAL INFORMATION: Redness, swelling of the left arm. History of IV line placement yesterday. COMPARISON: None. TECHNIQUE: Color-flow triplex imaging with spectral analysis and compression Doppler were performed on the left upper extremity. FINDINGS: The left internal jugular, subclavian, axillary, brachial, basilic veins are widely patent. The lower part of the left cephalic vein shows occlusive thrombus surrounded by soft tissue subcutaneous swelling. The remainder of the upper part of the left cephalic vein including the junction between the subclavian and the cephalic vein appear widely patent. IMPRESSION: 1. Occlusive thrombus involving the inferior part of the left cephalic vein. 2. The remainder of the left upper extremity venous tree is widely patent. This critical result was discussed with clarice orozco MD at 3:23 PM on 08/25/2017 and it was ascertained that the content and urgency of the report was understood at the time of direct communication.
[2017-08-25 22:17] VITALS: BP 90/56
[2017-08-26 00:30] VITALS: BP 105/62
[2017-08-26 07:09] VITALS: BP 96/54
--- NOTE | 2017-08-26 07:27 | PN- Housestaff ---
Irvin MOSELEY,Em 08/26/17 0727: Subjective Follow-up For: Alcohol abuse and polysubstance abuse Complaints: no complaints Subjective: Patient seen and examined at bedside. No overnight events. He denies anxiety/ depression/hallucination /suicidal ideation Review of Systems Constitutional: Reports: see HPI. Objective Last 24 Hrs of Vital Signs/I&O Vital Signs Date Time Temp Pulse Resp B/P B/P Pulse O2 O2 Flow FiO2 Mean Ox Delivery Rate 08/26 0753 64 100/60 08/26 0709 97.9 77 18 96/54 96 08/26 0030 105/62 08/25 2217 98.1 93 18 90/56 95 Room Air 08/25 2147 93 90/50 08/25 1644 82 122/82 08/25 1526 98.1 82 18 12282 99 Room Air Intake & Output 08/26 1600 08/26 0800 08/26 0000 Intake Total 150 Output Total Balance 150 Intake, Oral 150 Physical Exam General Appearance: Alert, Oriented X3, Cooperative, No Acute Distress Cardiovascular: Regular Rate, Normal S1, Normal S2, No Murmurs Lungs: Normal Air Movement Abdomen: Soft, No Tenderness, No Hepatospenomegaly Neurological: Normal Speech, Strength at 5/5 X4 Ext, Normal Tone, Sensation Intact, Cranial Nerves 3-12 NL Current Medications: Current Medications Sig/Yulisa Start time Last Medication Dose Route Stop Time Status Admin Baclofen 10 MG Q6 PRN 08/18 08 AC 08/22 PO 193 Clonidine 0.1 MG TID 08/17 1000 AC 08/26 PO 0753 Dicyclomine HCl 20 MG Q6 PRN 08/18 0800 AC 08/19 PO 1522 Enoxaparin Sodium 40 MG DAILY 08/18 1000 AC SC Folic Acid 1 MG DAILY 08/20 1002 AC 08/26 PO 0752 Gabapentin 300 MG AT BEDTIME 08/21 2200 AC 08/25 PO 214 Gabapentin 300 MG Q8H 08/17 1630 AC 08/26 PO 075 Haloperidol 0.5 MG Q6-PRN PRN 08/21 1845 AC 08/22 PO 202 Hydroxyzine HCl 50 MG AT BEDTIME NEED.. 08/21 1415 AC 08/25 PO 0249 Hydroxyzine HCl 50 MG Q6 PRN 08/18 0800 AC 03/24 PO 1936 Ibuprofen 400 MG ONCE ONE 08/26 1015 DC 08/26 PO 08/26 1016 1015 Lorazepam 0.5 MG Q6 08/25 1800 AC 08/26 PO 08/26 1201 0619 Lorazepam 1 MG Q6 08/24 1800 DC 08/25 PO 08/25 1201 1201 Lorazepam 1 MG Q2P PRN 08/17 1245 DC 08/25 IV 2152 Multivitamins 1 TAB DAILY 08/17 1246 AC 08/26 PO 0752 Nicotine 14 MG DAILY 08/18 0800 AC 08/24 TOP 1007 Ondansetron HCl 4 MG Q6P PRN 08/17 1315 AC 08/22 IV 1029 Patient Medication 1 ED ONE ONE 08/26 1045 DC Teaching ED 08/26 1046 Sertraline HCl 50 MG DAILY 08/22 1000 AC 08/26 PO 0752 Thiamine HCl 100 MG DAILY 08/20 1002 AC 08/26 PO 0752 Assessment/Plan Assessment: This is a 32 yo gentleman active smoker (1 pack/d) with significant PMH of alcohol abuse with a questionable etoh withdrawal seizure, hepatitis c with negative viral load, 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 Assessment and plan: Alcohol detox/opioid withdrawal: -Patient is off Ativan. His ciwa score is 0 in last 24 hours. And vitals are stable. Psychiatry follow-up. Continue rest of his medication Bentyl, Atarax, baclofen, clonidine, per psychiatry. patient was also started on fluoxetine for his anxiety. Patient is counseled enough by me and psychiatry that if he leaves AGAINST MEDICAL ADVICE this time he would be at risk for seizure and possibly . -High dose thiamine with vitamin B12 and folic acid. -Omeprazole 40 mg daily. Zofran IV as needed. -Seizure precautions -Aspiration precautions -Regular diet. -Patient has left arm pain and swelling secondary due to IV infiltration. Ultrasound showed a small clot in the superficial vein. We will watch for any recurrent redness/swelling/pain. -Patient is homeless and social media developer is involved in the care. Patient has a bed available At [facility] on Thursday. Patient tapered off benzodiazepine and he has to be 48 hours after the benzo denies pain taper to be taken by the rehabilitation center. Problem List: 1. Polysubstance dependence including opioid type drug with complication, episodic abuse 2. Alcohol dependency Pain Ratin Pain Location: None Pain Goal: Remain pain free Pain Plan: Tylenol Tomorrow's Labs & Rationales: None Omid Wong 08/26/17 1130: Attending MD Review Statement Attending Statement Attending MD Statement: examined this patient, discuss w/resident/PA/COMPUTATIONAL LINGUIST, agreed w/resident/PA/COMPUTATIONAL LINGUIST, discussed with family, reviewed EMR data (avail), discussed with nursing, discussed with case mgmt, reviewed images, amended to note Attending Assessment/Plan: Patient seen and examined, overall doing well. CIWA scores 0-4. Vital signs are stable. Completed Ativan taper and then will be discharged long-term residential rehabilitation. Continue the rest of the management.
[2017-08-26 14:57] VITALS: BP 110/68
--- NOTE | 2017-08-26 15:21 | Patient Discharge Instructions ---
Discharge Instructions General Discharge Information You were seen/treated for: Alcohol abuse, polysubstance use disorder Watch for these problems: In case of chest pain, shortness of breath, abdominal pain, hallucinations, suicidal ideation please call to the nearest emergency room Special Instructions: Please follow-up with your primary care provider within 1-2 weeks of discharge. Please follow-up with IOP within 1-2 weeks of discharge Diet Continue normal diet: Yes Activity Full Activity/No Limits: Yes Acute Coronary Syndrome Inclusion Criteria At DC or during hospital stay patient has or had the following: ACS DIAGNOSIS No Discharge Core Measures Meds if any: Prescribed or Continued at Discharge Meds if any: NOT Prescribed or Continued at Discharge Congestive Heart Failure Inclusion Criteria At DC or during hospital stay patient has or had the following: CHF DIAGNOSIS No Discharge Core Measures Meds if any: Prescribed or Continued at Discharge Meds if any: NOT Prescribed or Continued at Discharge Cerebrovascular accident Inclusion Criteria At DC or during hospital stay patient has or had the following: CVA/TIA Diagnosis No Discharge Core Measures Meds if any: Prescribed or Continued at Discharge Meds if any: NOT Prescribed or Continued at Discharge Venous thromboembolism Inclusion Criteria VTE Diagnosis No VTE Type NONE VTE Confirmed by (Test) NONE Discharge Core Measures - Per Current guidelines, there needs to be overlap - treatment for the first 5 days of Warfarin therapy. - If discharged on Warfarin prior to 5 days of - overlap therapy, the patient will need to be - assessed for post discharge needs including - *Post discharge parental anticoagulation - *Warfarin and/or parental anticoagulation education - *Follow up date to check INR post discharge At least 5 days overlap therapy as Inpatient No Meds if any: Prescribed or Continued at Discharge Note: Overlap Therapy is Warfarin and Anticoagulant Meds if any: NOT Prescribed or Continued at Discharge
[2017-08-26 21:25] VITALS: BP 128/72
[2017-08-27 06:11] VITALS: BP 122/58
--- NOTE | 2017-08-27 07:10 | PN- Housestaff ---
See Addendum Subjective Follow-up For: Alcohol and polysubstance use disorder Complaints: no complaints Subjective: Patient seen and examined at bedside. He was lying comfortably in his bed. He complained of pain at the IV infiltration site. She denied suicidal ideation, hallucination, abdominal pain, anxiety, depression. Review of Systems Constitutional: Reports: see HPI. Objective Last 24 Hrs of Vital Signs/I&O Vital Signs Date Time Temp Pulse Resp B/P B/P Pulse O2 O2 Flow FiO2 Mean Ox Delivery Rate 08/27 1008 68 110/60 08/27 0611 98.3 71 20 122/58 97 08/26 2153 69 128/72 08/26 2125 98.1 69 18 128/72 100 Room Air 08/26 1601 88 110/68 08/26 1457 98.3 88 18 97 Room Air Intake & Output 08/27 1600 08/27 0800 08/27 0000 Intake Total 240 900 Output Total Balance 240 900 Intake, Oral 240 900 Number 0 Bowel Movements Physical Exam General Appearance: Alert, Oriented X3, Cooperative, No Acute Distress Cardiovascular: Regular Rate, Normal S1, Normal S2, No Murmurs Lungs: Clear to Auscultation Abdomen: Normal Bowel Sounds, Soft, No Tenderness, No Hepatospenomegaly Neurological: Normal Speech, Strength at 5/5 X4 Ext, Normal Tone, Sensation Intact Extremities: right forearm-IV infiltrated site appears swollen. No tenderness. 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 Assessment and plan: Alcohol detox/opioid withdrawal: -Patient is off Ativan. His ciwa score is 0 in last 24 hours. And vitals are stable. Psychiatry follow-up. Continue rest of his medication Bentyl, Atarax, baclofen, clonidine, per psychiatry. patient was also started on fluoxetine for his anxiety. Patient is counseled enough by me and psychiatry that if he leaves AGAINST MEDICAL ADVICE this time he would be at risk for seizure and possibly . -High dose thiamine with vitamin B12 and folic acid. -Omeprazole 40 mg daily. Zofran IV as needed. -Seizure precautions -Aspiration precautions -His PPD was negative this admission. -Regular diet. -Patient has left arm pain and swelling secondary due to IV infiltration. Ultrasound showed a small clot in the superficial vein. We will watch for any recurrent redness/swelling/pain. -Patient is homeless and social media content manager is involved in the care. Patient has a bed available At [facility] on Thursday. Patient tapered off benzodiazepine and he has to be 48 hours after the benzo denies pain taper to be taken by the rehabilitation center. Problem List: 1. Polysubstance dependence including opioid type drug with complication, episodic abuse 2. Alcohol dependency Pain Ratin Pain Location: None Pain Goal: Remain pain free Pain Plan: Tylenol Tomorrow's Labs & Rationales: none
[2017-08-27 14:04] VITALS: BP 98/56
[2017-08-27 22:21] VITALS: BP 106/78
[2017-08-28] VITALS: BP 106/78
--- NOTE | 2017-08-28 07:11 | PN- Housestaff ---
Irvin MOSELEY,Em 08/28/17 0710: Subjective Follow-up For: Alcohol and polysubstance abuse. Subjective: Patient seen and examined at bedside he denies any hallucinations/suicidal ideation/chest pain/palpitation/abdominal pain. Review of Systems Constitutional: Reports: see HPI. Objective Last 24 Hrs of Vital Signs/I&O Vital Signs Date Time Temp Pulse Resp B/P B/P Pulse O2 O2 Flow FiO2 Mean Ox Delivery Rate 08/28 0712 97.7 63 20 96/48 95 08/28 0000 97.8 87 20 106/78 08/27 2221 97.8 87 20 106/78 100 Room Air 08/27 2126 106/78 08/27 1404 97.8 70 18 98/56 97 Room Air Intake & Output 08/28 1600 08/28 0800 08/28 0000 Intake Total 650 500 Output Total Balance 650 500 Intake, Oral 650 500 Physical Exam General Appearance: Alert, Oriented X3, Cooperative, No Acute Distress Cardiovascular: Regular Rate, Normal S1, Normal S2, No Murmurs Lungs: Clear to Auscultation, Normal Air Movement Abdomen: Soft, No Tenderness, No Hepatospenomegaly Neurological: Normal Speech, Strength at 5/5 X4 Ext, Normal Tone, Sensation Intact Current Medications: Current Medications Sig/Yulisa Start time Last Medication Dose Route Stop Time Status Admin Aspirin 650 MG Q8 08/27 1000 DCD 08/28 PO 0541 Baclofen 10 MG Q6 PRN 08/18 0800 DCD 08/22 PO 1935 Clonidine 0.1 MG TID 08/17 1000 DCD 08/27 PO 2126 Dicyclomine HCl 20 MG Q6 PRN 08/18 0800 DCD 08/19 PO 1522 Enoxaparin Sodium 40 MG DAILY 08/18 1000 DCD SC Folic Acid 1 MG DAILY 08/20 1002 DCD 08/27 PO 1008 Gabapentin 300 MG AT BEDTIME 08/28 2199 DCD PO Gabapentin 300 MG BID 08/27 2199 DC 08/27 PO 2126 Gabapentin 300 MG AT BEDTIME 08/21 2199 DC 08/26 PO 215 Gabapentin 300 MG Q8H 08/17 1630 DCD 08/28 PO 0944 Haloperidol 0.5 MG Q6-PRN PRN 08/21 1845 DCD 08/27 PO 2126 Hydroxyzine HCl 50 MG AT BEDTIME NEED.. 08/21 1415 DCD 08/26 PO 2153 Hydroxyzine HCl 50 MG Q6 PRN 08/18 0800 DCD 08/27 PO 1708 Lorazepam 1 MG ONCE ONE 08/27 1715 DC 08/27 PO 08/27 1716 1708 Multivitamins 1 TAB DAILY 08/17 1246 DCD 08/27 PO 1008 Nicotine 14 MG DAILY 08/18 0800 DCD 08/27 TOP 2149 Ondansetron HCl 4 MG Q6P PRN 08/17 1315 DCD 08/22 IV 1029 Sertraline HCl 50 MG DAILY 08/22 1000 DCD 08/28 PO 0944 Thiamine HCl 100 MG DAILY 08/20 1002 DCD 08/27 PO 1008 Assessment/Plan Assessment: his is a 32 yo gentleman active smoker (1 pack/d) with significant PMH of alcohol abuse with a questionable etoh withdrawal seizure, hepatitis c with negative viral load, 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 Assessment and plan: Alcohol detox/opioid withdrawal: -Patient is off Ativan. His ciwa score is 0 in last 24 hours. And vitals are stable. Patient is a possible discharge to rehabilitation home today. Discussed with psychiatry who suggested to send him to rehabilitation with gabapentin, Seroquel, Gonzalez catheter, multivitamin. -Omeprazole 40 mg daily. Zofran IV as needed. -Seizure precautions -Aspiration precautions -His PPD was negative this admission. -Regular diet. Problem List: 1. Polysubstance dependence including opioid type drug with complication, episodic abuse 2. Alcohol dependency Pain Ratin Pain Location: NONE Pain Goal: Remain pain free Pain Plan: TYLENOL Tomorrow's Labs & Rationales: NONE Mauro Cuenca MD 08/28/172148: Attending MD Review Statement Attending Statement Attending MD Statement: examined this patient, discuss w/resident/PA/CUTTING TABLE OPERATOR, agreed w/resident/PA/CUTTING TABLE OPERATOR, reviewed EMR data (avail), discussed with nursing, discussed with case mgmt, amended to note Attending Assessment/Plan: The patient was seen and discussed with house staff and nursing. OK to discharge to drug rehab facility. Patient agrees with plan of care.
[2017-08-28 07:12] VITALS: BP 96/48
[2017-08-28] MEDS ORDERED: SERTRALINE HCL50 MG PO ×3 (08:16→09:53)
[2017-08-28] MEDS ORDERED: GABAPENTIN300 M2 PO ×7 (08:16→09:53)
[2017-08-28] MEDS ORDERED: ONE DAILY MULT1 EAC2 PO ×3 (08:44→09:53)
[2017-08-28] MEDS ORDERED: FOLIC ACID1 M1 PO ×3 (08:44→09:53)
--- NOTE | 2017-08-28 09:56 | Discharge Summary ---
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 Last drink was yesterday. Denies any seizure like activities, hallucination, increasing anxiety, suicidal or homicidal ideation. He reports using Benzos ( xanax) on a daily basis, he also admits to using cocaine. He reports to drinking 1 pint of vodka on a daily basis fo 6 months. He denied any life stressors, he stated that he regreted his decision to leave [facility] last time and that he is commited to getting hlep this time. His endorsed nausea and vomiting, denies any chest pain, palpitation or shortness of breath. Hospital course Alcohol detox/opioid withdrawal: -Patient was treated for alcohol and opiate withdrawal will be tapering dose of Ativan per [facility]. During the hospital course patient didn't have any withdrawal seizures, suicidal ideation, hallucination. Patient was seen by psychiatry who suggested to continue the current management, with discharge disposition to rehabilitation. On the day of discharge patient was off Ativan more than 48 hours. Patient also had PPD testing during this admission which was negative. We continued gabapentin, Seroquel, multivitamin. Patient had his IV line infiltrated, patient had severe pain due to the same. Ultrasound Doppler of the left arm was taken, which suggested clot in the superficial vein [left cephalic vein]. Patient was treated conservatively with cold compression and aspirin. Seizure precaution was maintained during this admission. Patient was sent to [facility] for rehabilitation. Allergies: Coded Allergies: quetiapine (Restless legs 08/20/17) trazodone (Restless legs 08/20/17) Pertinent Lab Results: Ultrasound Doppler left arm IMPRESSION: 1. Occlusive thrombus involving the inferior part of the left cephalic vein. 2. The remainder of the left upper extremity venous tree is widely patent. Disposition Summary Disposition Principal Diagnosis: Alcohol/opioid use disorder Additional Diagnosis: None Discharge Disposition: REHABILITATION CENTER Discharge Instructions General Discharge Information Code Status: Full Code Patient's Diet: Regular diet Patient's Activity: As tolerated Follow-Up Instructions/Appts: Please follow-up with your primary care provider and psychiatrist within 1-2 weeks of discharge. Medications at Discharge Discharge Medications: Start taking the following new medications: Multivitamin (One Daily Multivitamin) 1 EACH TABLET 1 Tablet ORAL DAILY Qty = 30 No Refills Instructions: .. Comments: Last Taken: 08/27/17 Time: 0930AM Folic Acid (Folic Acid) 1 MG TABLET 1 Milligram ORAL DAILY Qty = 30 No Refills Instructions: .. Comments: Last Taken: 08/27/17 Time: 0930AM Sertraline HCl (Sertraline HCl) 50 MG TABLET 50 Milligram ORAL DAILY Qty = 30 No Refills Instructions: .. Comments: Last Taken: 08/28/17 Time: 0945AM Gabapentin (Gabapentin) 300 MG CAPSULE 1 Tablet ORAL Every night Qty = 30 No Refills Instructions: .. Comments: Last Taken: 08/27/17 Time: 2200PM Gabapentin (Gabapentin) 300 MG CAPSULE 300 Milligram ORAL TWICE DAILY Qty = 90 No Refills Instructions: .. Comments: Last Taken: 08/28/17 Time: 0930AM Copies To: Jeanie MOSELEY,Jeanie Paredes MD Review Statement Documenting Attending: Mauro Cuenca MD Other Findings: Agree with the plan of care as outlined.
== END 2017-08-28 10:12 | DRG 773 ==
LOC: ERH 20:41 → 2NB 08-17 12:06 → ERHI 08-17 12:06 → ENRESERV 08-17 15:52 → CANRESERV 08-17 15:52 → ENRESERV 08-17 16:58 → ENTRNSPT 08-17 18:40 → 2NB 08-17 18:43 → EDTRNSPT 08-17 19:20 → CMPTRNSPT 08-17 19:21 → 2NB 08-18 08:46 → ENPENDDIS 08-28 09:55 → 2NB 08-28 10:12
PROVIDERS: Physician Assistant Medical; Student in an Organized Health Care Education/Training Program
DX: F10.239 Alcohol dependence with withdrawal, unspecified (principal); F13.20 Sedative, hypnotic or anxiolytic dependence, uncomplicated; F11.20 Opioid dependence, uncomplicated; F17.200 Nicotine dependence, unspecified, uncomplicated; B18.2 Chronic viral hepatitis C; F17.210 Nicotine dependence, cigarettes, uncomplicated; D72.829 Elevated white blood cell count, unspecified; F12.10 Cannabis abuse, uncomplicated; F32.9 Major depressive disorder, single episode, unspecified; Z59.0 Homelessness; F41.9 Anxiety disorder, unspecified; T82.898A Other specified complication of vascular prosthetic devices, implants and grafts, initial encounter; Y84.9 Medical procedure, unspecified as the cause of abnormal reaction of the patient, or of later complication, without mention of misadventure at the time of the procedure; Y92.230 Patient room in hospital as the place of occurrence of the external cause; I82.602 Acute embolism and thrombosis of unspecified veins of left upper extremity
CPT/HCPCS: 2NBP; 36415; 36592; 80307; 82436; 86803; 87389; 93005; 93010; 99232; G0480; J1650; J2405; J3490; J7040